=== PATIENT | female | born 2000 | race Caucasian/White ===

== ENCOUNTER 2023-10-28 12:56 | Observation (INO) | payer BC, SELFPAY ==
[2023-10-28] VITALS (24 sets, daily range): BP systolic 109–162; BP diastolic 49–97; PULSE 64–82; RESP 16–18; TEMP 36.4–36.8; O2SAT 98–100; BMI 34.4
--- NOTE | 2023-10-28 13:42 | PC.NURSE ---
Addendum entered by Katerina Ayers RN 10/28/23 14:26: Correction: this occurred at 1352 Original Note: Dr. Ferreira at beside
--- NOTE | 2023-10-28 13:46 | PC.NURSE ---
[facility] provider, Jesus Seals APRN s/w Dr. Ferreira and pt to be transferred to ER room 11.
--- NOTE | 2023-10-28 14:01 | HMH.EDGENADL ---
Discharge Plan Disposition Patient Disposition: Admitted Prescriptions Prescriptions: No Action ibuprofen 600 mg tablet 600 mg PO TIDP PRN (Reason: Pain (Scale Score 4-6)) Patient Comments: TAKE 1 TABLET BY MOUTH EVERY 6 HOURS. TAKE WITH FOOD. Referrals Follow up/Referrals: Neeru Samuels MD [Primary Care Provider] - See instructions Clinical Impressions Clinical Impression: Headache, Pre-eclampsia in period Discharge ED Provider: Shagufta Ferreira General Adult HPI <Shagufta Ferreira MD - Last Filed: 10/28/23 14:48> General Chief complaint: Recheck/Abnormal Lab/Rx Stated complaint: High BP 150/94 headache dizziness Time Seen by Provider: 10/28/23 13:57 Mode of Arrival: Ambulatory Source of Information: Patient Limitations: No Limitations Description of Symptoms (Recalled from ER Triage Doc. by RN): Pt took bp at home it was 150/94. She stated she had a ANGELES since 00:00 last night and has been rotating tylenol and ibuprofen. She states that she has seen floaters off and on. She is 1 week . She was induced for hypertension. History of Present Illness HPI narrative: Patient is a 1 week presents emergency department with mild headache and hypertension. She was diagnosed with gestational hypertension followed by [facility]. States she was not diagnosed with chronic hypertension preeclampsia or eclampsia. She was never on any antihypertensive medications. She was visiting her grandmother in town had a mild headache had some photophobia and some floaters she states but headache is mild and symptoms are mild she was to the urgent treatment clinic and they sent her to the emergency department further evaluation and management. Lower extremity edema is at its baseline no history of liver dysfunction thrombocytopenia etc. No other neurologic symptoms today. She is not breast-feeding currently but pumping and saving her milk. She delivered at 38 weeks and was induced however due to her hypertension. Related Data Home Medications Medication Instructions Recorded Confirmed ibuprofen 600 mg tablet 600 mg PO TIDP PRN Pain (Scale 10/28/23 10/28/23 Score 4-6) Allergies Allergy/AdvReac Type Severity Reaction Status Date / Time promethazine [From Phenergan] Allergy Verified 10/28/23 13:24 PFSH <Shagufta Ferreira MD - Last Filed: 10/28/23 14:48> [facility] Disclaimer: The information contained in this section may have been updated after the patient was seen, as this information can be updated by other users. Social History (Updated 10/28/23 @ 14:48 by Shagufta Ferreira MD) Smoking Status: Never smoker alcohol intake: never current occupational status: other Travel in the last 8 weeks: None <Shagufta Ferreira MD - Last Filed: 10/28/23 14:48> ROS Obtained: Yes All systems reviewed & no additional complaints except as documented Physical Exam <Shagufta Ferreira MD - Last Filed: 10/28/23 14:48> General General appearance: alert and in no apparent distress Respiratory Respiratory exam: Present normal lung sounds bilaterally and respiratory distress Cardiovascular Cardiovascular exam: Present regular rate and normal rhythm Abdominal Exam Abdominal exam: Present soft and distention Extremities Exam Extremities exam: Present other (Bilateral symmetric lower extremity edema) Neurological Exam Neurological exam: Present alert, oriented X3, CN II-XII intact and normal gait; Absent motor sensory deficit Medical Decision Making <Shagufta Ferreira MD - Last Filed: 10/28/23 14:48> [facility] Inquiry Pt receiving controlled substance: No Vital Signs: 10/28/23 13:05 10/28/23 13:59 10/28/23 14:01 Temperature 97.6 F 97.6 F Temperature Source Oral Oral Pulse Rate 72 Pulse Rate [Right Radial] 73 68 Respiratory Rate 18 18 18 Blood Pressure 143/82 H Blood Pressure [Left Arm] 162/97 H 143/82 H Blood Pressure Mean 102 Blood Pressure Mean [Left Arm] 118 102 Blood Pressure Source [Left Arm] Automatic Cuff Blood Pressure Position [Left Arm] Sitting 02 Sat by Pulse Oximetry 100 98 98 Oxygen Delivery Method Room Air Room Air 10/28/23 14:30 10/28/23 15:00 10/28/23 15:23 Temperature 98.2 F Temperature Source Pulse Rate 65 68 76 Pulse Rate [Right Radial] Respiratory Rate 18 18 16 Blood Pressure 136/74 141/73 H 141/73 H Blood Pressure [Left Arm] Blood Pressure Mean 92 Blood Pressure Mean [Left Arm] Blood Pressure Source [Left Arm] Blood Pressure Position [Left Arm] 02 Sat by Pulse Oximetry 98 Oxygen Delivery Method Room Air 10/28/23 15:43 Temperature Temperature Source Pulse Rate 76 Pulse Rate [Right Radial] Respiratory Rate 18 Blood Pressure 155/93 H Blood Pressure [Left Arm] Blood Pressure Mean 113 Blood Pressure Mean [Left Arm] Blood Pressure Source [Left Arm] Blood Pressure Position [Left Arm] 02 Sat by Pulse Oximetry 100 Oxygen Delivery Method Lab Data Lab results reviewed: Yes I reviewed the patient's lab results. Lab Results 10/28/23 14:00: WBC 10.9 H, RBC 3.21 L, Hgb 8.7 L, Hct 28.1 L, MCV 87.6, MCH 27.2, MCHC 31.1 L, RDW 15.6, Plt Count 607 H, MPV 8.0, Neut % (Auto) 73.1, Lymph % (Auto) 19.1, [place] % (Auto) 5.2, Eos % (Auto) 1.5, Baso % (Auto) 1.1, Neut # (Auto) 8.0 H, Lymph # (Auto) 2.1, [place] # (Auto) 0.6, Eos # (Auto) 0.2, Baso # (Auto) 0.1, Sodium 140, Potassium 3.9, Chloride 109 H, Carbon Dioxide 29, Anion Gap 5.9, BUN 11, Creatinine 0.80, Estimated Creat Clear 174, Estimated GFR 90, Est GFR ( Amer) 109, Glucose 86, Calcium 9.1, Total Bilirubin 0.2, AST 28, ALT 30, Alkaline Phosphatase 142 H, Total Protein 6.9, Albumin 3.7, Globulin 3.2, Albumin/Globulin Ratio 1.2 10/28/23 15:05: Urine Color Yellow, Urine Appearance Sl cloudy, Urine pH 6.0, Ur Specific [place] >= 1.030, Urine Protein 1+, Urine Glucose (UA) Negative, Urine Ketones Negative, Urine Blood 3+, Urine Nitrate Negative, Urine Bilirubin Negative, Urine Urobilinogen 0.2, Ur Leukocyte Esterase 1+ A, Urine RBC 10-20, Urine WBC 3-5, Ur Squamous Epith Cells 3-5, Urine Bacteria Trace, Urine Creatinine 107, Urine Total Protein 47.0 H 10/28/23 14:00 10/28/23 14:00 Orders (Tests/Meds): ED MEDICATIONS Generic Name Dose Route Start Last Admin Trade Name Freq PRN Reason Stop Dose Admin Sodium Chloride 10 ml 10/28/23 14:05 10/28/23 14:22 Sodium Chloride 0.9% 10ml Flush Syringe IV 11/27/23 14:04 10 ml NEEDED PRN Administration Maintain IV Site Discontinued Medications Generic Name Dose Route Start Last Admin Trade Name Tiesha PRN Reason Stop Dose Admin Acetaminophen 1,000 mg 10/28/23 13:57 10/28/23 14:22 Acetaminophen 1,000mg/100ml Vial IV 10/28/23 13:58 1,000 mg ONCE ONE Administration Lactated Ringer's 1,000 mls @ 999 mls/hr 10/28/23 14:00 10/28/23 14:22 Lactated Ringer's 1000 Ml Bag IV 10/28/23 15:00 999 mls/hr .Q1H1M DIAMANTE Administration Magnesium Sulfate 2 gm in 50 mls @ 50 mls/hr 10/28/23 13:57 10/28/23 14:21 Magnesium Sulfate 2gm/50ml Premix IV 10/28/23 14:56 50 mls/hr ONCE ONE Administration ORDERS Category Date Time Status CBC w/Auto Diff [Complete Blood Count Auto Diff] Stat Lab 10/28/23 14:00 Completed CMP [Comprehensive Metabolic Panel] Stat Lab 10/28/23 14:00 Completed Creatinine,Urine Random Stat Lab 10/28/23 15:05 Completed Total Protein,Urine Random Stat Lab 10/28/23 15:05 Completed UA [Urinalysis and Microscopic] Stat Lab 10/28/23 15:05 Completed Urine Culture Stat Micro 10/28/23 15:05 Received Medical Decision Narrative: Patient is a 23-year-old female present today with a normal neurologic exam with recent diagnosis of gestational hypertension here today with a headache some photophobia and some floaters. I suspect this is just residual gestational hypertension given that she is only 1 week and typically takes several weeks to completely resolve. Possible she had an undiagnosed chronic hypertension as well. Will however screen for worsening preeclampsia. She has no definitive signs or symptoms of severe features. Will check CBC CMP urinalysis to evaluate for significant proteinuria elevated liver enzymes thrombocytopenia etc. IV fluids will be administered as well as Tylenol and magnesium for her headache. I will reassess after this workup is complete. Assessment 2:46 PM patient's headache is 100% improved. Serial neurologic exams are normal labs so far unremarkable. Awaiting urine still at this point. Assuming there is no significant proteinuria will have the patient follow-up with her [employer]OLOG[employer] doctor as previously instructed. Of note patient has anemia but this has improved since her recent discharge from the hospital where her hemoglobin actually was around 7. Awaiting urinalysis will transition care to Dr. Juan Antonio Cortes at 3 PM. <John Cortes MD - Last Filed: 10/28/23 16:14> Vital Signs: 10/28/23 13:05 10/28/23 13:59 10/28/23 14:01 Temperature 97.6 F 97.6 F Temperature Source Oral Oral Pulse Rate 72 Pulse Rate [Right Radial] 73 68 Respiratory Rate 18 18 18 Blood Pressure 143/82 H Blood Pressure [Left Arm] 162/97 H 143/82 H Blood Pressure Mean 102 Blood Pressure Mean [Left Arm] 118 102 Blood Pressure Source [Left Arm] Automatic Cuff Blood Pressure Position [Left Arm] Sitting 02 Sat by Pulse Oximetry 100 98 98 Oxygen Delivery Method Room Air Room Air 10/28/23 14:30 10/28/23 15:00 10/28/23 15:23 Temperature 98.2 F Temperature Source Pulse Rate 65 68 76 Pulse Rate [Right Radial] Respiratory Rate 18 18 16 Blood Pressure 136/74 141/73 H 141/73 H Blood Pressure [Left Arm] Blood Pressure Mean 92 Blood Pressure Mean [Left Arm] Blood Pressure Source [Left Arm] Blood Pressure Position [Left Arm] 02 Sat by Pulse Oximetry 98 Oxygen Delivery Method Room Air 10/28/23 15:43 Temperature Temperature Source Pulse Rate 76 Pulse Rate [Right Radial] Respiratory Rate 18 Blood Pressure 155/93 H Blood Pressure [Left Arm] Blood Pressure Mean 113 Blood Pressure Mean [Left Arm] Blood Pressure Source [Left Arm] Blood Pressure Position [Left Arm] 02 Sat by Pulse Oximetry 100 Oxygen Delivery Method Lab Data Lab Results 10/28/23 14:00: WBC 10.9 H, RBC 3.21 L, Hgb 8.7 L, Hct 28.1 L, MCV 87.6, MCH 27.2, MCHC 31.1 L, RDW 15.6, Plt Count 607 H, MPV 8.0, Neut % (Auto) 73.1, Lymph % (Auto) 19.1, [place] % (Auto) 5.2, Eos % (Auto) 1.5, Baso % (Auto) 1.1, Neut # (Auto) 8.0 H, Lymph # (Auto) 2.1, [place] # (Auto) 0.6, Eos # (Auto) 0.2, Baso # (Auto) 0.1, Sodium 140, Potassium 3.9, Chloride 109 H, Carbon Dioxide 29, Anion Gap 5.9, BUN 11, Creatinine 0.80, Estimated Creat Clear 174, Estimated GFR 90, Est GFR ( Amer) 109, Glucose 86, Calcium 9.1, Total Bilirubin 0.2, AST 28, ALT 30, Alkaline Phosphatase 142 H, Total Protein 6.9, Albumin 3.7, Globulin 3.2, Albumin/Globulin Ratio 1.2 10/28/23 15:05: Urine Color Yellow, Urine Appearance Sl cloudy, Urine pH 6.0, Ur Specific [place] >= 1.030, Urine Protein 1+, Urine Glucose (UA) Negative, Urine Ketones Negative, Urine Blood 3+, Urine Nitrate Negative, Urine Bilirubin Negative, Urine Urobilinogen 0.2, Ur Leukocyte Esterase 1+ A, Urine RBC 10-20, Urine WBC 3-5, Ur Squamous Epith Cells 3-5, Urine Bacteria Trace, Urine Creatinine 107, Urine Total Protein 47.0 H Orders (Tests/Meds): ED MEDICATIONS Generic Name Dose Route Start Last Admin Trade Name Freq PRN Reason Stop Dose Admin Sodium Chloride 10 ml 10/28/23 14:05 10/28/23 14:22 Sodium Chloride 0.9% 10ml Flush Syringe IV 11/27/23 14:04 10 ml NEEDED PRN Administration Maintain IV Site Discontinued Medications Generic Name Dose Route Start Last Admin Trade Name Freq PRN Reason Stop Dose Admin Acetaminophen 1,000 mg 10/28/23 13:57 10/28/23 14:22 Acetaminophen 1,000mg/100ml Vial IV 10/28/23 13:58 1,000 mg ONCE ONE Administration Lactated Ringer's 1,000 mls @ 999 mls/hr 10/28/23 14:00 10/28/23 14:22 Lactated Ringer's 1000 Ml Bag IV 10/28/23 15:00 999 mls/hr .Q1H1M DIAMANTE Administration Magnesium Sulfate 2 gm in 50 mls @ 50 mls/hr 10/28/23 13:57 10/28/23 14:21 Magnesium Sulfate 2gm/50ml Premix IV 10/28/23 14:56 50 mls/hr ONCE ONE Administration ORDERS Category Date Time Status CBC w/Auto Diff [Complete Blood Count Auto Diff] Stat Lab 10/28/23 14:00 Completed CMP [Comprehensive Metabolic Panel] Stat Lab 10/28/23 14:00 Completed Creatinine,Urine Random Stat Lab 10/28/23 15:05 Completed Total Protein,Urine Random Stat Lab 10/28/23 15:05 Completed UA [Urinalysis and Microscopic] Stat Lab 10/28/23 15:05 Completed Urine Culture Stat Micro 10/28/23 15:05 Received Medical Decision Narrative: Patient is a 23-year-old female present today with a normal neurologic exam with recent diagnosis of gestational hypertension here today with a headache some photophobia and some floaters. I suspect this is just residual gestational hypertension given that she is only 1 week and typically takes several weeks to completely resolve. Possible she had an undiagnosed chronic hypertension as well. Will however screen for worsening preeclampsia. She has no definitive signs or symptoms of severe features. Will check CBC CMP urinalysis to evaluate for significant proteinuria elevated liver enzymes thrombocytopenia etc. IV fluids will be administered as well as Tylenol and magnesium for her headache. I will reassess after this workup is complete. Assessment 2:46 PM patient's headache is 100% improved. Serial neurologic exams are normal labs so far unremarkable. Awaiting urine still at this point. Assuming there is no significant proteinuria will have the patient follow-up with her [employer]OLOG[employer] doctor as previously instructed. Of note patient has anemia but this has improved since her recent discharge from the hospital where her hemoglobin actually was around 7. Awaiting urinalysis will transition care to Dr. Juan Antonio Cortes at 3 PM. John Cortes: Upon assumption of care patient was hemodynamically stable. Throughout her stay in the emergency department patient has had 2 episodes of photopsia lasting approximate 1 minute in duration. Upon my evaluation patient has a 4 out of 10 bifrontal headache, no acute reported extremity weakness. Patient is a G1, P1 vaginal delivery on 17 at [place]. She had gestational hypertension which was reportedly not treated with any medication. Upon arrival patient was systolic over 160. She was given 2 g of magnesium and 1 g of acetaminophen. Blood pressures since have been just above 140 systolic. Patient does have 1+ protein in her urine. This may be confounded by bleeding given that there were red cells in her urine as well. However given neurologic symptoms with hypertension preeclampsia remains on the differential. The case was discussed with obstetrics on-call Dr. Yoo. Urine protein to creatinine ratio was obtained which was 0.43. 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 Patient elected the latter. Given this patient will be admitted to obstetrics at this time for continued evaluation. Critical Care <Shagufta Ferreira MD - Last Filed: 10/28/23 14:48> Critical Care Time Critical Care Time: No
[2023-10-28] MEDS: MAGNESIUM SULFATE IN WATER 2 GM/50 ML PIGGYBACK IV (14:21)
[2023-10-28] MEDS: SODIUM CHLORIDE 0.9% 10ML FLUSH SYRINGE 10 ML IV (14:22)
[2023-10-28] MEDS: ACETAMINOPHEN 1,000MG/100ML VIAL 1000 MG IV (14:22)
[2023-10-28] MEDS: LACTATED RINGERS 1000ML 1,000 ML 999 ML IV (14:22)
--- NOTE | 2023-10-28 14:24 | PC.NURSE ---
manual breast pump obtained from OB department d/t pt leaking through her bra and breast pad. Pump set up for pt and charge sticker item given back to OB to bill from their department.
[2023-10-28 14:27] LABS: Chloride 109 mmol/L (98-107); Potassium 3.9 mmoL/L (3.5-5.1); Sodium 140 mmol/L (136-145)
[2023-10-28 14:29] LABS: Blood Urea Nitrogen 11 mg/dl (7-17); Creatinine Clearance Estimated 174 mL/min (50-200); Estimated Glomerular Filt Rate 90 ml/min (>60); GFR (African American) 109 ML/MIN (>60)
[2023-10-28 14:30] LABS: Alanine Aminotransferase 30 U/L (12-78); Albumin Level 3.7 g/dl (3.5-5.0); Albumin/Globulin Ratio 1.2 (1.1-1.8); Alkaline Phosphatase 142 U/L (38-126); Anion Gap 5.9 mEq/L (5-15); Aspartate Amino Transferase 28 U/L (14-36); Bilirubin,Total 0.2 mg/dl (0.2-1.3); Carbon Dioxide 29 mmol/L (22.0-30.0); Globulin 3.2 g/dL (1.3-3.2); Total Protein,Serum 6.9 g/dl (6.3-8.2)
[2023-10-28 14:31] LABS: Calcium 9.1 mg/dl (8.4-10.2); Glucose 86 mg/dl (74-100)
[2023-10-28 14:33] LABS: Basophils # 0.1 K/mm3 (0-0.2); Basophils % 1.1 % (0.1-2.0); Eosinophils # 0.2 K/mm3 (0.0-0.4); Eosinophils % 1.5 % (0.1-12.0); Hematocrit 28.1 % (37.0-47.0); Hemoglobin 8.7 g/dL (12.2-16.2); Lymphocytes # 2.1 K/mm3 (0.7-4.5); Lymphocytes % 19.1 % (10-50); Mean Corpuscular HGB Conc 31.1 g/dL (31.8-35.4); Mean Corpuscular Hemoglobin 27.2 pg (27.0-31.2); Mean Corpuscular Volume 87.6 fl (81-99); Monocytes # 0.6 K/mm3 (0.1-1.0); Monocytes % 5.2 % (1.7-9.3); Neutrophils % 73.1 % (37.0-80.0); Platelet Count 607 K/mm3 (142-424); Red Blood Count 3.21 M/mm3 (4.20-5.40); Red Cell Distribution Width 15.6 % (11.5-17.5); White Blood Count 10.9 K/mm3 (4.8-10.8)
--- NOTE | 2023-10-28 14:43 | PC.NURSE ---
Rounded on pt, she is feeling better and headache is mostly all gone . BP is 136/74 at this time. Pt shows us on her [facility] pt portal that at the time of d/c. Her Hgb 7.[address] Ferreira notified of this.
--- NOTE | 2023-10-28 15:00 | PC.NURSE ---
Dr. Ferreira rounded on pt.
--- NOTE | 2023-10-28 15:08 | PC.NURSE ---
Urine collected and submitted to lab
[2023-10-28 15:13] LABS: Microscopic, Urine URINE MICROSCOPIC (MICROSCOPIC)
[2023-10-28 15:15] LABS: Appearance,Urine SL CLOUDY (Clear); Bilirubin,Urine Negative (Negative); Blood, Urine 3+ (Negative); Color,Urine YELLOW (Yellow); Glucose,Urine (UA) Negative (Negative); Ketones,Urine Negative (Negative); Leukocyte Esterase,Urine 1+ (Negative); Nitrate,Urine Negative (Negative); Protein,Urine 1+ (Negative); Specific Gravity, Urine >= 1.030 (1.005-1.030); Urobilinogen,Urine 0.2 EU/dl (0.2)
[2023-10-28 15:27] LABS: Bacteria,Urine Trace /lpf
--- NOTE | 2023-10-28 15:32 | PC.NURSE ---
Dr. Cortes at BS to update pt on current POC
--- NOTE | 2023-10-28 15:35 | PC.NURSE ---
Dr. Fredo vargas
--- NOTE | 2023-10-28 15:38 | PC.NURSE ---
Dr. Cortes s/w Dr. Yoo
--- NOTE | 2023-10-28 15:49 | PC.NURSE ---
Pt provided with warm blanket
[2023-10-28 15:52] LABS: Creatinine,Urine Random 107 mg/dL (Not Estab.)
--- NOTE | 2023-10-28 16:00 | PC.NURSE ---
DR ESCOTO SPEAKING WITH DR GAN
--- NOTE | 2023-10-28 16:08 | PC.NURSE ---
Dr. Cortes at BS to update pt on results and POC
--- NOTE | 2023-10-28 16:12 | PC.NURSE ---
notified diet supervisor for bed request. ADX to OB- Dr. Mili Yoo for 1 wk eclampsia
--- NOTE | 2023-10-28 16:18 | PC.NURSE ---
Called OB and they received orders directly from Dr. Yoo.
--- NOTE | 2023-10-28 16:23 | PC.NURSE ---
report called to OB
[2023-10-28 17:20] LABS: Magnesium 1.9 mg/dl (1.6-2.3)
--- NOTE | 2023-10-28 17:48 | P.HP_ITS ---
History of Present Illness *Admission Date: 10/28/23 *Reason for visit:: Severe preeclampsia *History of present illness: Deborah Schaefer is a 23-year-old approximately 1 week from a at 38 completed weeks gestation at [place]. She was delivered early secondary to diagnosis of gestational hypertension, per patient. Patient was here visiting her mom and grandmother when she noticed that she felt very very hot and that she was running a fever. They presented to the ED where her blood pressure was 162/97. OB was called in secondary to her severe range blood pressure and headache that has not been relieved with a gram of Tylenol decision was made to admit her and treat her for severe preeclampsia. [facility] Disclaimer: The information contained in this section may have been updated after the patient was seen, as this information can be updated by other users. Social History (Updated 10/28/23 @ 14:48 by Shagufta Ferreira MD) Smoking Status: Never smoker alcohol intake: never current occupational status: other Travel in the last 8 weeks: None Review of Systems Review of Systems Review of systems (narrative): Review of Systems Constitutional: Denies fever, chills, and sweats Eyes: Denies vision change/ pain Respiratory: Denies cough and shortness of breath Cardiovascular: Denies chest pain and lightheadedness Gastrointestinal: Denies abdominal pain. Denies nausea, vomiting. Genitourinary: Denies dysuria and incontinence Musculoskeletal: Denies shoulder pain and back pain Neurological: Denies change in speech. Endorses severe headache Meds Home Medications and Allergies Home Medications Medication Instructions Recorded Confirmed Type ibuprofen 600 mg tablet 600 mg PO Q6HP PRN Pain (Scale 10/28/23 10/29/23 History Score 4-6) labetalol 100 mg tablet 100 mg PO BID #60 tabs 10/29/23 Rx ondansetron 4 mg disintegrating 4 mg PO Q8H #14 tabs 10/29/23 Rx tablet sertraline 25 mg tablet 25 mg PO DAILY #30 tabs 10/29/23 Rx New Prescriptions to Start Prescriptions: labetalol Mili Yoo ondansetron Mili Yoo sertraline Mili Yoo Allergies Allergy/AdvReac Type Severity Reaction Status Date / Time promethazine [From Phenergan] Allergy Verified 10/28/23 21:50 Exam Data for Last 24 hours Vital signs and Labs for Last 24 Hours: Temp Pulse Resp BP Pulse Ox O2 Del Method 98.2 F 76 18 155/93 H 100 Room Air 10/28/23 15:23 10/28/23 15:43 10/28/23 15:43 10/28/23 15:43 10/28/23 15:43 10/28/23 15:23 Laboratory Results - last 24 hr 10/28/23 14:00: WBC 10.9 H, RBC 3.21 L, Hgb 8.7 L, Hct 28.1 L, MCV 87.6, MCH 27.2, MCHC 31.1 L, RDW 15.6, Plt Count 607 H, MPV 8.0, Neut % (Auto) 73.1, Lymph % (Auto) 19.1, [place] % (Auto) 5.2, Eos % (Auto) 1.5, Baso % (Auto) 1.1, Neut # (Auto) 8.0 H, Lymph # (Auto) 2.1, [place] # (Auto) 0.6, Eos # (Auto) 0.2, Baso # (Auto) 0.1, Sodium 140, Potassium 3.9, Chloride 109 H, Carbon Dioxide 29, Anion Gap 5.9, BUN 11, Creatinine 0.80, Estimated Creat Clear 174, Estimated GFR 90, Est GFR ( Amer) 109, Glucose 86, Calcium 9.1, Magnesium 1.9, Total Bilirubin 0.2, AST 28, ALT 30, Alkaline Phosphatase 142 H, Total Protein 6.9, Albumin 3.7, Globulin 3.2, Albumin/Globulin Ratio 1.2 10/28/23 15:05: Urine Color Yellow, Urine Appearance Sl cloudy, Urine pH 6.0, Ur Specific [place] >= 1.030, Urine Protein 1+, Urine Glucose (UA) Negative, Urine Ketones Negative, Urine Blood 3+, Urine Nitrate Negative, Urine Bilirubin Negative, Urine Urobilinogen 0.2, Ur Leukocyte Esterase 1+ A, Urine RBC 10-20, Urine WBC 3-5, Ur Squamous Epith Cells 3-5, Urine Bacteria Trace, Urine Creatinine 107, Urine Total Protein 47.0 H I & O for Last 24 hours: Intake & Output 10/25/23 10/26/23 10/27/23 10/28/23 23:59 23:59 23:59 23:59 Intake Total 1150 / 1150 Balance 1150 / 1150 Weight 220 lb Narrative: General: patient is alert oriented in no acute distress and responds appropriately to questions. HEENT: NCAT, EOMI, moist mucous membranes, neck supple with full ROM Cardiovascular: RRR +S1/S2, no murmurs or rubs Pulmonary: Clear to auscultation bilaterally, nonlabored breathing, symmetric chest rise Abdominal: Soft, nontender, no guarding, or rebound noted. Extremities: +2 pitting edema to the knees bilaterally, no tenderness or cyanosis noted. Plus 2 out of 4 reflexes bilaterally Skin: Normal turgor, intact, warm. Negative for erythema, pallor, petechia, or lesions Neurologic: Negative for sensory or motor deficit Psychiatric: Normal affect, normal thought process, good judgment and insight, no depression or anxious mood appreciated. *Routine HEENT Exam Head: Present normocephalic and atraumatic Eye: Present EOMI, PERRL and normal accommodation; Absent conjunctival icterus, scleral injection, nystagmus or exophthalmos ENT: Present mucous membranes moist *Routine Respiratory Exam Respiratory: Present CTA bilaterally, normal respiratory effort, able to speak in complete sentences and symmetric chest movement; Absent accessory muscle use, decreased breath sounds, rales, respiratory distress, wheezes, distant breath sounds or diminished air movement *Routine Cardiovascular Exam Cardiovascular: Present RRR, Normal S1 and Normal S2; Absent murmur or gallop *Routine Abdominal Exam Abdominal: Present soft and normoactive bowel sounds; Absent tenderness, distended, rebound or guarding *Routine Rectal Exam Rectal:: deferred *Routine Genitalia Exam Genitalia:: normal female Assessment and Plan *Assessment and plan (1) Pre-eclampsia in period: Status: Acute Category: Medical Code(s): O14.95 - Unspecified pre-eclampsia, complicating the puerperium (2) Headache: Status: Acute Qualifiers: Headache chronicity pattern: acute headache Intractability: intractable Category: Medical Code(s): R51.9 - Headache, unspecified (3) Severe pre-eclampsia: Status: Acute Qualifiers: Trimester: unspecified trimester Qualified Code(s): O14.10 - Severe pre-eclampsia, unspecified trimester Category: Medical Code(s): O14.10 - Severe pre-eclampsia, unspecified trimester (4) Breast feeding status of mother: Status: Acute Category: Medical Code(s): Z39.1 - Encounter for care and examination of lactating mother (5) (normal spontaneous vaginal delivery): Status: Acute Category: Medical Code(s): O80 - Encounter for full-term uncomplicated delivery (6) Anemia: Status: Acute Qualifiers: Anemia type: other cause Other causes of anemia: acute posthemorrhagic Qualified Code(s): D62 - Acute posthemorrhagic anemia Category: Medical Code(s): D64.9 - Anemia, unspecified Plan #Severe preeclampsia # -HD#1 -Doing well. VSS. Serial lochia and fundal checks. -Admit to labor and delivery with a 4 g loading dose of magnesium and 2 g an hour of a maintenance magnesium dose -Please check a magnesium level 4 hours after loading dose -Strict I's and O monitoring -Regular diet -SCDs on at all times in bed -Benadryl IV ordered as needed insomnia -Zofran ordered as needed nausea -Status post 1 g IV Tylenol for her headache. 500 mg p.o. every 4 hours of Tylenol -Serial BP and serial PIH labs #Anemia -Hemoglobin is 8.7 -MCV is 87.6 -Supplement with p.o. iron -Delivery at an outside hospital suspect physiologic anemia of /possible hemorrhage #Breast-feeding status of mother -Greater than 1 hour was spent counseling the patient on breast-feeding, latch, pumping. The has previously had a surgical tongue-tie procedure but was not doing the proper care after the surgery. Extensive counseling provided to patient and all family members in the room. The patient was fitted for the proper nipple shield. The patient was fitted for the proper breast pump flanges. All questions and concerns were addressed to the patient's satisfaction. The infant was able to successfully latch and into the breast.
[2023-10-28] MEDS: MAGNESIUM SULFATE IN WATER 4 GM/50 ML PIGGYBACK IV (18:02)
[2023-10-28] MEDS: LACTATED RINGERS 1000ML 1,000 ML 75 ML IV (18:07)
--- NOTE | 2023-10-28 18:10 | PC.NURSE ---
Bilateral Brachial and patellar Reflexes brisk plus 2, clonus absent
[2023-10-28] MEDS: MAGNESIUM SULFATE IN WATER 20 GM/500 ML IV.SOLN IV (18:23)
--- NOTE | 2023-10-28 20:00 | PC.NURSE ---
DTR'S 2+ PATELLA,NO CLONUS
[2023-10-28] MEDS: ACETAMINOPHEN 500MG TAB 500 MG PO (20:13)
[2023-10-28] MEDS: LABETALOL 100MG TABLET 100 MG PO (21:00)
--- NOTE | 2023-10-28 21:00 | PC.NURSE ---
DTR'S 2+,NO CLONUS,PT REPORTS HER H/A NOW IS ABOUT A 1 ON PAIN SCALE
[2023-10-28 21:44] LABS: Magnesium 1.9 mg/dl (1.6-2.3)
--- NOTE | 2023-10-28 22:00 | PC.NURSE ---
PT LAYING ON HER RIGHT SIDE ASLEEP,RESP.EVEN AND UNLABORED.EASILY AROUSED TO CHECK HER REFLEXES.DTR'S 2+,NO CLONUS,NO COMPLAINTS OF H/A OR VISIUAL DISTURBANCES
--- NOTE | 2023-10-28 23:00 | PC.NURSE ---
PT JUST RETURNED FROM BATHROOM.SIGNIFICANT OTHER SAID SHE WAS A LITTLE SHAKY AND ALMOST FELL,TOLD HIM THE MAG.MAKES YOU WEAK.DTR'S 2 +,NO CLONUS,NO HEADACHE,NO VISIUAL DISTURBANCES.
--- NOTE | 2023-10-28 23:30 | PC.NURSE ---
LAB HERE TO DRAW A MAG.LEVEL
[2023-10-28 23:56] LABS: Magnesium 5.3 mg/dl (1.6-2.3)
[2023-10-29] VITALS (11 sets, daily range): BP systolic 109–141; BP diastolic 54–77; PULSE 74–85; RESP 16–18; TEMP 36.4–36.7; O2SAT 96–100
--- NOTE | 2023-10-29 00:04 | PC.NURSE ---
DTR'S 2+,NO CLONUS,REPORTS A SLIGHT H/A MAYBE A 1 ON SCALE OF 0-10 FROM JUST COMING BACK FROM BATHROOM,DENIES ANY VISIUAL DISTURBANCES,.LUNGS CLEAR.WATER PITCHER REFILLED FOR PT AT THIS TIME
--- NOTE | 2023-10-29 00:15 | PC.NURSE ---
PT GETTTING READY TO BREASTFEED
--- NOTE | 2023-10-29 01:00 | PC.NURSE ---
PT LAYING ON HER RIGHT SIDE,SHE HAD JUST WENT TO BATHROOM.DTR'S 1+,NO CLONUS,DENIES ANY ANGELES OR VISIUAL DIDTURBANCES.2+ PITTING EDEMA NOTED TO BILATERAL LOWER EXTRIMITIES
--- NOTE | 2023-10-29 02:10 | PC.NURSE ---
PT WAS SLEEPING,EASILY AROUSED.DTR'S 2+,NO CLONUS,DENIES ANY ANGELES OR VISIUAL DISTURBANCES.ASSISTED HER TO BATHROOM.STANDBY ASSIST R/T WEAKNESS IN LEGS.PT VOIDED 300ML CLEAR YELLOW URINE.RETURNED TO BED.WARM BLANKET PROVIDED.BED IN LOW POSITION,CALL FUENTES IN REACH
[2023-10-29] MEDS: ACETAMINOPHEN 500MG TAB 500 MG PO (04:01)
[2023-10-29] MEDS: MAGNESIUM SULFATE IN WATER 20 GM/500 ML IV.SOLN IV (04:07)
--- NOTE | 2023-10-29 04:10 | PC.NURSE ---
Addendum entered by Donna Donald RN 10/29/23 06:30: 2+ PITTING EDEMA IN BLE Original Note: UPON ENTERING ROOM SIGNIFICANT OTHER HAD TAKEN PT TO BATHROOM,SHE VOIDED 500ML OF CLEAR YELLOW URINE.LUNGS CLEARS,RESP.EVEN AND UNLABORED.DTR'S 2 +,NO CLONUS.PT C/O HEADACHE AFTER GOING TO BATHROOM.RATING IT A 5 ON PAIN SCALE OF 0-10.TYLENOL 500MG PO GIVEN.PT DENIES ANY BLURRED VISION OR SPOTS.IV SITE STILL INFUSING WITHOUT DIFF.BED IN LOW POSITION ,CALL LIGHT IN REACH
--- NOTE | 2023-10-29 05:00 | PC.NURSE ---
PT HAD JUST RETURNED FROM BATHROOM,DTR'S 2+,NO CLONUS,DENIES HEADACHE,BLURRED VISION AND SPOTS,NO C/O OR NEEDS
--- NOTE | 2023-10-29 06:21 | PC.NURSE ---
PT SLEEPING SOUNDLY,RESP.EVEN AND UNLABORED.PT AROUSED SO REFLEXES COULD BE OBTAINED.2+,NO CLONUS,NO ANGELES OR VISIUAL DISTURBANCES
[2023-10-29] MEDS: LACTATED RINGERS 1000ML 1,000 ML 75 ML IV (06:47)
--- NOTE | 2023-10-29 07:00 | PC.NURSE ---
2+ DTR'S,NO CLONUS.ZOFRAN 4MG IVP GIVEN FOR NAUSEA
[2023-10-29] MEDS: ONDANSETRON 4MG/2ML VIAL 4 MG IV (07:01)
[2023-10-29] MEDS: LABETALOL 100MG TABLET 100 MG PO (08:39)
--- NOTE | 2023-10-29 14:00 | PC.NURSE ---
Mag sulfate D/C'd at this time
--- NOTE | 2023-10-29 15:00 | PC.NURSE ---
Dr. Yoo in the room rounding on pt. MD aware of pts PP depression screening score of 15.
--- NOTE | 2023-10-29 16:04 | EXP.DC.SUM ---
General Admission date:: 10/28/23 Discharge date: 10/29/23 HPI HPI HPI: Deborah Schaefer is a 23-year-old approximately 1 week from a at 38 completed weeks gestation at [place]. She was delivered early secondary to diagnosis of gestational hypertension, per patient. Patient was here visiting her mom and grandmother when she noticed that she felt very very hot and that she was running a fever. They presented to the ED where her blood pressure was 162/97. OB was called in secondary to her severe range blood pressure and headache that has not been relieved with a gram of Tylenol decision was made to admit her and treat her for severe preeclampsia. Hospital Course Hospital Course Hospital Course: Deborah Schaefer is a 23-year-old approximately 1 week from a at 38 completed weeks gestation at [place]. She was delivered early secondary to diagnosis of gestational hypertension, per patient. Patient was here visiting her mom and grandmother when she noticed that she felt very very hot and that she was running a fever. They presented to the ED where her blood pressure was 162/97. OB was called in secondary to her severe range blood pressure and headache that has not been relieved with a gram of Tylenol decision was made to admit her and treat her for severe preeclampsia. Patient was admitted and administered magnesium for seizure prophylaxis. She was started on labetalol 100 mg twice daily. She was treated with Zofran for nausea. She was treated with Tylenol for a persistent headache. Patient was given extensive counseling on breast-feeding and caring for an infant. Her labs were monitored closely and were stable on discharge. Her blood pressure was stable on discharge. Patient screened high for depression and states that she has a history of chronic depression that is never been treated. She was started on a low-dose of Zoloft and counseled extensively on this. She will follow-up with me in 1 week . Exam Data for Last 24 hours Vital signs and Labs for Last 24 Hours: Temp Pulse Resp BP Pulse Ox O2 Del Method 97.9 F 75 18 126/67 100 Room Air 10/29/23 12:00 10/29/23 12:00 10/29/23 12:00 10/29/23 12:00 10/29/23 12:00 10/29/23 14:00 Laboratory Results - last 24 hr 10/28/23 14:00: Magnesium 1.9 10/28/23 14:00: Magnesium 1.9 10/28/23 23:38: Magnesium 5.3 H D I & O for Last 24 hours: Intake & Output 10/26/23 10/27/23 10/28/23 10/29/23 23:59 23:59 23:59 23:59 Intake Total 1150 / 1150 2158 / 2158 Output Total 750 / 750 4750 / 4750 Balance 400 / 400 -2592 / -2592 Weight 220 lb Narrative: General: patient is alert oriented in no acute distress and responds appropriately to questions. HEENT: NCAT, EOMI, moist mucous membranes, neck supple with full ROM Cardiovascular: RRR +S1/S2, no murmurs or rubs Pulmonary: Clear to auscultation bilaterally, nonlabored breathing, symmetric chest rise Abdominal: Soft, nontender, no guarding, or rebound noted. Extremities: +2 pitting edema to the knees bilaterally, no tenderness or cyanosis noted. Plus 2 out of 4 reflexes bilaterally Skin: Normal turgor, intact, warm. Negative for erythema, pallor, petechia, or lesions Neurologic: Negative for sensory or motor deficit Psychiatric: Normal affect, normal thought process, good judgment and insight, no depression or anxious mood appreciated. Constitutional Constitutional: no acute distress *Routine HEENT Exam Head: Present normocephalic Eye: Present EOMI and PERRL ENT: Present mucous membranes moist *Routine Neck Exam Neck: Present supple; Absent lymphadenopathy *Routine Respiratory Exam Respiratory: Present CTA bilaterally *Routine Cardiovascular Exam Cardiovascular: Present RRR *Routine Abdominal Exam Abdominal: Present soft and normoactive bowel sounds; Absent tenderness *Routine Extremities Exam Extremities: Absent cyanosis, clubbing or edema *Routine Skin Exam Skin: Present warm; Absent rash *Routine Neurological Exam Neurological: Present alert and oriented X3 Results Data Completed and Pending Labs on day of discharge: Labs from last 24 hours 10/28/23 10/28/23 10/28/23 23:38 14:00 14:00 Magnesium 5.3 H D 1.9 1.9 DS: Diagnosis Discharge Diagnosis (1) Pre-eclampsia in period: Status: Acute Code(s): O14.95 - Unspecified pre-eclampsia, complicating the puerperium (2) Headache: Status: Acute Code(s): R51.9 - Headache, unspecified Qualifiers: Headache chronicity pattern: acute headache Intractability: intractable (3) Severe pre-eclampsia: Status: Acute Code(s): O14.10 - Severe pre-eclampsia, unspecified trimester Qualifiers: Trimester: unspecified trimester Qualified Code(s): O14.10 - Severe pre-eclampsia, unspecified trimester (4) Breast feeding status of mother: Status: Acute Code(s): Z39.1 - Encounter for care and examination of lactating mother (5) (normal spontaneous vaginal delivery): Status: Acute Code(s): O80 - Encounter for full-term uncomplicated delivery (6) Anemia: Status: Acute Code(s): D64.9 - Anemia, unspecified Qualifiers: Anemia type: other cause Other causes of anemia: acute posthemorrhagic Qualified Code(s): D62 - Acute posthemorrhagic anemia Problem details: #Severe preeclampsia # -HD#2 -Doing well. VSS. Serial lochia and fundal checks. -Status post magnesium -Tolerating p.o. without nausea or vomiting -DC with Zofran RX as needed nausea #Anemia -Hemoglobin is 8.7 -MCV is 87.6 -Supplement with p.o. iron -Delivery at an outside hospital suspect physiologic anemia of /possible hemorrhage #Breast-feeding status of mother -Greater than 1 hour was spent counseling the patient on breast-feeding, latch, pumping. The infant has previously had a surgical tongue-tie procedure but was not doing the proper care after the surgery. Extensive counseling provided to patient and all family members in the room. The patient was fitted for the proper nipple shield. The patient was fitted for the proper breast pump flanges. All questions and concerns were addressed to the patient's satisfaction. The infant was able to successfully latch and into the breast. # depression -Likely a component of chronic depression. Patient scored high with ED PS. Will repeat this at her visit. Started on Zoloft 25 mg once daily. Counseled on somnolence and decreased libido Discharge home today with short interval follow-up Meds Home Medications and Allergies Home Medications Medication Instructions Recorded Confirmed Type ibuprofen 600 mg tablet 600 mg PO Q6HP PRN Pain (Scale 10/28/23 10/29/23 History Score 4-6) labetalol 100 mg tablet 100 mg PO BID #60 tabs 10/29/23 Rx ondansetron 4 mg disintegrating 4 mg PO Q8H #14 tabs 10/29/23 Rx tablet sertraline 25 mg tablet 25 mg PO DAILY #30 tabs 10/29/23 Rx New Prescriptions to Start Prescriptions: labetalol Mili Yoo ondansetron Mili Yoo sertraline Mili Yoo Allergies Allergy/AdvReac Type Severity Reaction Status Date / Time promethazine [From Phenergan] Allergy Verified 10/28/23 21:50 Discharge Plan Disposition Patient Disposition: Home, Self-Care Follow up Plan Follow up with: Mili Yoo DO [Staff Physician] - 1 week Prescriptions/Medication Reconciliation: New labetalol 100 mg Tablet 100 mg PO BID Qty: 60 1RF sertraline 25 mg tablet 25 mg PO DAILY Qty: 30 3RF ondansetron 4 mg tablet,disintegrating 4 mg PO Q8H Qty: 14 0RF Continued ibuprofen 600 mg tablet 600 mg PO Q6HP PRN (Reason: Pain (Scale Score 4-6)) Patient Comments: TAKE 1 TABLET BY MOUTH EVERY 6 HOURS. TAKE WITH FOOD. Problem Reconciliation Problems Reviewed?: Yes Patient Discharge Instructions ACTIVITY: Continue current activity DIET: regular diet Additional Instructions: Congratulations on the delivery of your sweet baby boy. It is my privilege to be part of your [facility] team and help care for you during your period. You were admitted to labor and delivery secondary to severe preeclampsia. You were administered magnesium sulfate for seizure prophylaxis. You were started on a low-dose of labetalol, 100 mg twice daily, for blood pressure control. During your stay we discussed baby blues versus depression and you expressed concern of exacerbation of your chronic depression/anxiety. You were started on the lowest dose of Zoloft. Prior to discharge you were scheduled to follow-up and see me in 1 week to discuss the new medications that you were started on and ensure that your mood was stable and your blood pressure was well-controlled. Below are a list of things to call my office for or return to the emergency department for. Discharge: 1. Take 800 mg Ibuprofen every 8 hours as needed for pain. You can also take 500-1000 mg of Tylenol in between doses, every 6-8 hours. 2. Iron supplements can make you constipated. Colace can be taken 1-2 times per day as you need. You can take iron tablets every other day if constipation is too bad. 3. Nothing in the vagina for 6 weeks - no sex, douching, tampons. No tub baths 4. Do not lift greater than 15 pounds for 6 weeks, this is the equivalent of 2 gallons of milk. 5. Reasons to return to L&D or call On-Call doctor - fever (greater than 100.4) - heavy vaginal bleeding (soaking through 1 pad in less than 2 hours or passing clots that are egg sized) - vaginal discharge (malodorous and/or purulent) - severe headaches, leg tenderness/edema, or any other symptoms that warrant immediate medical attention. 6. depression/blues - Normal to feel anxious/overwhelmed for first 2 weeks - Talk to your doctor if: anxiety lasts over 2 weeks, trouble bonding with baby, withdrawing from other family members, thoughts of harming yourself or others Blood pressure and preeclampsia instructions 1. Please take your blood pressure twice daily. 2. Please call if greater than 2 values are higher than: 150 systolic (the top number) or 100 diastolic (the bottom number). 3. Please go to the emergency room or labor and delivery triage if any value is higher than: 160 systolic (the top number) or 110 diastolic (the bottom number). 4. Please call if unrelenting headache (does not go away with rest or Tylenol or ibuprofen), changes in vision (spots, floaters, flashes of light), chest pain, shortness of breath, or right upper quadrant (liver) abdominal pain. Mili Yoo DO [facility] [phone] *Nothing in the Vagina for 6 weeks* *No strenuous activity* *No heavy lifting* *No tub baths until okay's by * Patient Instructions: DI for Pre-eclampsia Providers Primary Care Provider: Neeru Samuels Admit Provider: Mili Yoo Attending Provider: Mili Yoo
--- NOTE | 2023-10-29 16:10 | PC.NURSE ---
IV D/C'd and D/C instructions provided
== END 2023-10-29 17:00 | disposition home or self-care (01) ==
LOC: UTC 13:14 → ER 13:45 → OB 16:17
PROVIDERS: Emergency Medicine; Admitting Provider Obstetrics & Gynecology; Emergency Provider Student in an Organized Health Care Education/Training Program; PCP Internal Medicine; Visit Provider Obstetrics & Gynecology
DX: O14.15 Severe pre-eclampsia, complicating the puerperium (principal); O99.345 Other mental disorders complicating the puerperium; F53.0 Postpartum depression; O90.81 Anemia of the puerperium
CPT/HCPCS: 36415; 80053; 81001; 82570; 83735; 84156; 85025; 87086; G0378; J0131; J2405; J3475

== ENCOUNTER → 2023-11-01 14:56 | Outpatient (CLI) | payer BC, SELFPAY | LOC: OBOUT 14:57 | PROVIDERS: Visit Provider Obstetrics & Gynecology | DX: Z39.1 Encounter for care and examination of lactating mother (principal) ==

== ENCOUNTER 2025-02-12 14:41 | Outpatient (CLI) | payer BC, SELFPAY ==
--- OUTSIDE RECORDS SUMMARY | 2025-02-12 14:45 | XMS_ITS | Clinical Summary ---
Author Organization [facility] Address [address] [place] [address] Phone Care Team Providers Care Open Source Developer Name Role Phone Neeru Samuels MD Primary Care Provider [phone]- [phone] Allergies Active Allergy Reactions Criticality Noted Date Comments Adhesive Rash Low 10/20/2023 Promethazine Other (See Comments) Medium Childhood reaction Medications vit no.[id number] c 27 mg iron- 800 mcg Oral Tablet Take 1 Tablet by mouth daily. Active ibuprofen (ADVIL;MOTRIN) 600 mg Oral Tablet Take 1 Tablet by mouth every 6 hours. Take with food. 60 Tablet 10/22/2023 Active sertraline (ZOLOFT) 25 mg Oral Tablet Take 25 mg by mouth daily. 10/29/2023 Active Active Problems Problem Noted Date Diagnosed Date (spontaneous vaginal delivery) 10/21/2023 Elevated blood pressure affe cting in third trimester, antepartum 10/20/2023 Vaginal discharge during in third trim meaghan 10/11/2023 Rh negative, antepartum 05/18/2023 Resolved Problems Problem Noted Date Diagnosed Date Resolved Date Encounter for induction of labor 10/20/2023 04/05/2024 Encounter for supervision of normal , antepartum 04/19/2023 04/05/2024 Overview (10/05/2023): G1. KRAAN by 8 wk US. PNL normal Genetics undecided Anatomy wnl GCT 97 Gbs neg Immunizations Immunization Administration Dates Next Due DTaP 06/13/2005, 2,2001,02/2002 DTaP/HiB 12/24/2002 HPV 9 Valent 11/07/2017 HPV Quadrivalent 08/27/2012 Hep B/HiB 2001,2001 Hepatitis A, Ped/Adol, 2 Dose 08/27/2012, 006 Hepatitis B, Adult 07/29/2021,03/15/2021 Hepatitis B, Ped/Adol 04/17/2021,2001 HiB (PRP-T) 2001 IPV 06/13/2005, 2,2001,02/2002 Influenza Vaccine Quadrivalent PF 08/26/2021,04/2021 Influenza, Live, Intranasal 08/27/2012 LAST MANUFACTURED 2011-Pneum ococcal Conjugate 7 Valent 09/20/2002,2001,2001,02/2002 MMR 06/13/2005,09/20/2002 Meningococcal B,OMV 03/15/2021,03/19/2018,2017 Meningococcal Oligosaccharide Conjugate 11/08/19 18,08/27/2012 PPD Test 09/21/2018 Rho (D) Immune Globulin 10/22/2023,08/11/2023 Td (adult), preservative free 03/19/2018 Tdap 08/08/2023,08/27/2012 Varicella 08/27/2012,06/14/2002 Surgical History Surgery Date Site/Laterality Comments TONSILLECTOMY 08/07/2006 - 08/06/2007 Medical History Medical History Date Comments Post depression Hypertension Family History Medical History Relation Name Comments Anemia Maternal Grandfather Heart Attack Maternal Grandfather had PM Diabetes Mother Hypertension Mother pre-eclampsia Mother Breast Cancer Paternal Aunt Diabetes Paternal Grandfather Skin Cancer Paternal Grandmother Relation Name Status Comments Father Alive Maternal Grandfather Alive Mother Alive Paternal Aunt Alive Paternal Grandfather Alive Paternal Grandmother Social History Tobacco Use Types Packs/Day Years Used Date Smoking Tobacco: Never Passive Smoke Exposure: Never Smokeless Tobacco: Never Tobacco Cessation:Counseling Given: Not Answered Alcohol Use Standard Drinks/Week Comments Not Currently 0 (1 standard drink = 0.6 oz pur e alcohol) social PHQ-2 Answer Date Recorded PHQ-2 Total Score 0 10/20/2023 Sexually Active Control Partners Comments Yes Male Comments No Sex and Gender Information Value Date Recorded Sex Assigned at Not on file Legal Sex Female 3:17 PM EST Gender Identity Not on file Sexual Orientation Not on file Obstetrics History Para Term AB IAB SAB Ectopic Multiple Livin g Live Births 1 1 1 0 1 1 Date Outcome GA Total Labor Labor/2nd/3rd Weight Sex Type Anes PTL Kisha A1 A5 Name Clin 2023 Term 38w 5d 0h 06m 0h 06m 7 lb 5.1 oz (3.32 kg) M Vag-S pont Epidur al N Livin g 8 9 Serene Noel DO Complications:Gestational hy pertension, third trimester Delivery Location:[facility] ([facility]) Last Filed Vital Signs Vital Sign Reading Time Taken Comments Blood Pressure 124/72 07/11/2024 1:32 PM EST Pulse 82 07/11/2024 1:32 PM EST Temperature 36.6 C (97.8 F) 04/05/2024 2:08 PM EDT Respiratory Rate 14 03/10/2024 6:29 AM EDT Oxygen Saturation 97% 07/11/2024 1:32 PM EST Inhaled Oxygen Concentration - - Weight 106.1 kg (234 lb) 07/11/2024 1:32 PM EST Height 170.2 cm (5' 7 ) 07/11/2024 1:32 PM EST Body Mass Index 36.65 07/11/2024 1:32 PM EST Plan of Treatment Upcoming Encounters Date Type Department Care Team (Late st Contact Info) Description 07/15/2025 10:30 AM EST Office Visit [facility] [address] [place] [address] Neeru Samuels MD [address] [place] [address] Health Maintenance Due Date Last Done Comments COVID-19 Vaccine ( season) 2024 05/15/2021, 04/17/2021 Chlamydia Screening 04/19/2024 04/19/2023 Influenza Vaccine (#1) 2025 2, 05/15/2021, 08/27/2012 Annual Wellness Exam 07/11/2025 07/11/2024 Cervical Cancer Screening 04/19/2026 Pap Smear 04/19/2026 04/19/2023 DTaP/TDaP/Td (9 - Td or Tdap) 08/08/2033 08/08/2023, 03/19/2018, 08/27/2012, Additional history exists Pneumococcal Vaccine 0-49 Aged Out 2002, 2001, 2001, Additional history exists No longer eligible based on patient's age to complete this topic HPV Completed 11/07/2017, 08/27/2012 Meningococcal B Vaccine Completed 03/15/20, 03/19/2018, 11/07/2017 Hepatitis B Vaccine Completed 07/29/2021, 04/17/2021, 03/15/2021, Additional history exists Goals Goal Patient Goal Type Associated Problems Recent Progress Patient-Stated? Author Blood Pressure < 140/90 Blood Pressure 124/72(2023 1:32 PM EST) No Chely Amezcua LPN Maintain a healthy diet, exercise regularly and maintain an ideal body weight General No Zora Khan, DIANNE Procedures Procedure Name Priority Date/Time Associated Diagnosis Comments GC CHLAMYDIA THIN PREP Routine 04/19/2023 10:30 AM EDT Encounter for supervision of other normal in first trimester SPINNER TENDER CYTOLOGY REQUEST (PAP ONLY) Routine 04/19/2023 10:30 AM EDT Encounter for supervision of other normal in first trimester from Last 3 Months or Most Recently Relevant to Health Maintenance Results * SPINNER TENDER CYTOLOGY REQUEST (PAP ONLY) (04/19/2023 10:30 AM EDT) CASE REPORT Gynecologic Cytology Report Case: [id number] Authorizing Provider: Carmel Holder Collected: 04/19/2023 1030 MD Lachelle Ordering Location: [facility] Received: 04/19/2023 1030 First Screen: Mildred Roman CT Specimen: LIQUID-BASED PAP - CERVICAL/ENDOCERV ICAL, Cervix, Endocervical 04/25/2023 11:59 AM EDT [facility] PAP FINAL DIAGNOSIS Negative for intraepithelial lesion or malignancy 04/25/2023 11:59 AM EDT [facility] at 1159 EDT MICROSCOPIC DESCRIPTION Microscopic examination is performed and the findings corroborate the diagnosis. 04/25/2023 11:59 AM EDT [facility] PAP SMEAR ADEQUACY Satisfactory for evaluation 04/25/2023 11:59 AM EDT [facility] ENDOCERVICAL T-ZONE Transformation zone present 04/25/2023 11:59 AM EDT [facility] EMBEDDED IMAGES 11:59 AM EDT [facility] PAP DISCLAIMER The Pap Smear is a screening test that aids in the detection of cervical cancer and cancer precursors. Both false positive and false negative results can occur. The test should be used at regular intervals, and positive results should be confirmed before definitive therapy. Processed using the ThinPrep Jewel Setter Automated cytology screening device ([employer]). 04/25/2023 11:59 AM EDT [facility] Thin Prep ENDOCERVICAL STRUCTURE / Unknown 04/19/2023 10:30 AM EDT 04/19/2023 10:30 AM EDT Carmel Holder MD CYTOLOGY ORDERABL ES Final Result [address] [id number] * GC CHLAMYDIA THIN PREP (04/19/2023 10:30 AM EDT) Chlamydia trachomatis Not Detected Not Detected 04/20/2023 1:51 PM EDT [facility] Neisseria gonorrhoeae Not Detected Not Detected 04/20/2023 1:51 PM EDT [facility] Thin Prep SPECIMEN FROM UTERINE CERVIX / Unknown 04/19/2023 10:30 AM EDT 04/19/2023 10:30 AM EDT Narrative [facility] - 04/20/2023 1:51 PM EDT Testing methodology is logging worker mediated amplification (TMA) using the Aptima Combo 2 assay from light/Lighting by LED. A negative result does not completely rule out a Chlamydia trachomatis or Neisseria gonorrhoeae infection due to potential inhibitors or levels present below the limit of detection by this assay. Results are dependent on proper collection and transport of specimen. This test is indicated for medical purposes only and should not be used for legal or forensic purposes. The performance characteristics of this assay were validated by the testing laboratory. This assay is FDA cleared to test the following specimens: clinician-collected endocervical, vaginal, male urethral swab specimens, rectal swabs, and throat/pharyngeal swabs; patient collected vaginal specimens within a clinic setting; Thin Prep Specimens in PreservCyt Solution; and first-stream, unpreserved male and female urine specimens. Detailed methodology is available upon request. Carmel Holder MD MICROBIOLOGY - [facility] ORDERABLES Final Result [facility] [address] [facility] , [place] [address] from Last 3 Months or Most Recently Relevant to Health Maintenance Insurance ANTHEM PPO ANTHEM PPO ANTHEM PPO ANTHEM PPO * Guarantor: Deborah Tim Account Type Relation to Patient Date of Phone Billing Address [place] Personal Family Self Advance Directives For more information, please contact: [phone] * Full Code (Latest Code Status on File) Date Activated Date Inactivated Comments 10/20/2023 11:46 AM 10/22/2023 7:25 PM Care Teams Open Source Developer Relationship Specialty Start Date End Date Neeru Samuels MD [address] [place] [address] PCP - General Internal Medicine 07/05/23
== END 2025-02-12 23:59 | disposition home or self-care (01) ==
LOC: LAB 14:42
PROVIDERS: Visit Provider Obstetrics & Gynecology
DX: Z32.01 Encounter for pregnancy test, result positive (principal)
CPT/HCPCS: 36415; 84144; 84702

== ENCOUNTER 2025-03-26 15:01 | Outpatient (CLI) | payer BC, SELFPAY ==
[2025-03-26 16:13] LABS: Hematocrit 39.4 % (37.0-47.0); Hemoglobin 12.8 g/dL (12.2-16.2); Immature Granulocytes % 0.3 %; Mean Corpuscular HGB Conc 32.5 g/dL (31.8-35.4); Mean Corpuscular Hemoglobin 27.4 pg (27.0-31.2); Mean Corpuscular Volume 84.2 fl (81-99); Nucleated Red Blood Cells % 0 %; Platelet Count 330 K/mm3 (142-424); Red Blood Count 4.68 M/mm3 (4.20-5.40); Red Cell Distribution Width-SD 48.7 fL; White Blood Count 10.7 K/mm3 (4.8-10.8)
[2025-03-26 17:30] LABS: Hepatitis C Ab Qual. W/ RFX NEGATIVE (Negative)
[2025-03-27 08:29] LABS: RPR W/RFX Titers Nonreactive (Nonreactive)
[2025-03-28 07:10] LABS: Hepatitis B Surface Antigen Negative (Negative)
[2025-03-28 08:13] LABS: Rubella Antibodies, IgG 2.12 index (Immune >0.99)
[2025-03-31 22:23] LABS: Neisseria gonorrhoeae, NAA Negative (Negative)
== END 2025-03-26 23:59 | disposition home or self-care (01) ==
LOC: LAB 15:02
PROVIDERS: Visit Provider Obstetrics & Gynecology
DX: Z34.81 Encounter for supervision of other normal pregnancy, first trimester (principal); Z3A.00 Weeks of gestation of pregnancy not specified
CPT/HCPCS: 36415; 85025; 86592; 86762; 86803; 86850; 87086; 87340; 87389; 87491; 87591

== ENCOUNTER 2025-04-23 13:53 | Outpatient (CLI) | payer BC, SELFPAY ==
--- OUTSIDE RECORDS SUMMARY | 2025-03-12 17:46 | XMS_ITS | Encounter Summary ---
Author Organization [place] [address] Care Team Providers Care Metal Bumper Name Role Phone Neeru Samuels MD Primary Care Provider [phone]- [phone] Reason for Visit * Reason Comments Chest Pain Chest tightness, wor se with inspiration. Pt states she may be Encounter Details Date Type Department Care Team (Late st Contact Info) Description 03/12/2025 5:46 PM EDT - 03/12/2025 9:14 PM EDT Emergency [facility] [place] [address] Trent Tyler MD [address] [place] [address] [place] [address] Atypical chest pain (Primary Dx); [...] Sloan RN * Does this person have difficulty [...] 5:12 PM GORDONT Akanksha Bay RN * [place] Suicide Severity Rating Scale (Q shift for [...] PM EDT Follow-up with your PCP and PHOTOGRAMMETRIC ENGINEER. Tylenol as needed for pain. Return to ER with new or worsening concerns. documented in this encounter Medications at Time of Discharge ibuprofen (ADVIL;MOTRIN) 600 mg Oral Tablet Take 1 Tablet by mouth every 6 hours. Take with food. 60 Tablet 10/22/2023 vit no.571-jrxc-[id number] 27 mg iron- 800 mcg Oral Tablet Take 1 Tablet by mouth daily. sertraline (ZOLOFT) 25 mg Oral Tablet Take 25 mg by mouth daily. 10/29/2023 documented as of this encounter Discharge Disposition Disposition Code Departure Means Destination Comment s Home or Self Correction documented in this encounter ED Notes * [...] trimester . Patient otherwise to follow-up with PHOTOGRAMMETRIC ENGINEER in the outpatient setting. - History obtained [...] 07/15/2025 10:30 AM Neeru Samuels MD SEP [facility] LACHELLE FINAL IMPRESSION 1. Atypical chest pain [...] Take with food. 60 Tablet 0 vit no.055-ifdu-ymvmc 27 mg iron- 800 mcg Oral Tablet [...] Gran% 0.2 % Lymph Percent 18.6 % [place] Percent 6.6 % Eos Percent 0.8 % Baso Percent 0.2 % Neut # 7.8 (H) 1.6 - 6.1 x10(3)/mcL IMMGRAN# 0.0 0.0 - 0.1 x10(3)/mcL Lymph # 2.0 1.2 - 3.9 x10(3)/mcL [place] # 0.7 0.3 - 0.9 x10(3)/mcL Eos# 0.1 0.0 - 0.5 x10(3)/mcL Baso # 0.0 0.0 - 0.1 x10(3)/mcL TROPONIN-T HIGH SENSITIVITY BASELINE W/ REFLEX Result Value Ref Range ma-gEwzhyrfj-U <6 <14 ng/L Narrative Ingestion of haley [...] sample can interfere with this immunoassay test. [employer] Medicine TechnologyEAD TESTING PANEL Narrative The following orders were created for panel order GILEAD TESTING PANEL. 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: : 2000 Requested By: [facility] Order Number: [id number] Reading MD: Dylon Adan MD Measurements Intervals [place] Rate: 77 P: 42 WV: 158 QRS: 69 QRSD: 91 T: 43 [...] SEP Xenia Rivera IM [address] [place] [address] Neeru Samuels MD [address] [facility] [address] documented as of this encounter Goals [...] (ABNORMAL) D-DIMER (03/12/2025 8:25 PM EDT) Pathologist [facility] D-Dimer 633(H) <=500 ng/mL FEU 03/12/2025 8:44 PM EDT [facility] [employer] Comment:This is an automated latex enhanced immunoassay [...] ORDERABLES Fi nal Result Performing Organization Address [facility]/State/ZIP Co de Phone Number [facility] [employer] [address] , [address] [place] [id number] * HEPATITIS B SURFACE ANTIGEN (03/12/2025 7:35 PM EDT) Pathologist [facility] Hep Bs Ag Non-Reacti ve Non-React emilia 03/12/2025 8:44 PM EDT [facility] [employer] Comment:HBsAg not detected. Does not exclude possibility of exposure to HBV. Blood VENOUS BLOOD / Unknown Venipuncture / Unknown 03/12/2025 7:35 PM EDT 03/12/2025 7:42 PM EDT Narrative [facility] [employer] [facility] - 03/12/2025 8:44 PM EDT Test performed using [employer] electrochemiluminescence immunassay (ECLIA). Umang Gomez APRN CHEMISTRY ORDERABLES Fin al Result Performing Organization Address [facility]/ZIP Co de Phone Number PREFERRED [employer] [facility] [address] [facility] , [address] [place] [phone] * HCV ANTIBODY SCREEN W/ REFLEX (03/12/2025 7:35 PM EDT) Hep C Ab Non-Reacti ve Non-React emilia 03/12/2025 8:33 PM EDT PREFERRED [employer] [facility] Comment:No antibodies to HCV detected. Does not exclude possibility of exposure to HCV. Blood VENOUS BLOOD / Unknown Venipuncture / Unknown 03/12/2025 7:35 PM EDT 03/12/2025 7:42 PM EDT Narrative [facility] [employer] [facility] - 03/12/2025 8:33 PM EDT Test performed using [employer] electrochemiluminescence immunassay (ECLIA). Umang Gomez APRN HEMATOLOGY ORDERABLES Fi nal Result Performing Organization Address [facility] Co de Phone Number [facility] [employer] [facility] [address] [facility] , [place] [address] * HIV AG/AB (03/12/2025 7:35 PM EDT) Pathologist [facility] HIV Ag/AB Non-Reacti ve Non-Reacti ve 03/12/2025 8:44 PM EDT [facility] [employer] Comment:Negative for HIV-1 a ntigen and anti-HIV-1/anti-HIV-2 antibodies. Blood VENOUS BLOOD / Unknown Venipuncture / Unknown 03/12/2025 7:35 PM EDT 03/12/2025 7:42 PM EDT Narrative [employer] [facility] - 03/12/2025 8:44 PM EDT Test performed using Camila [employer] electrochemiluminescence immunassay (ECLIA). Umang Gomez APRN IMMUNOLOGY ORDERABLES Fi nal Result Performing Organization Address [facility]/ZIP Co de Phone Number [employer] [facility] [address] [facility] , [place] [address] * (ABNORMAL) HUMAN CHORIONIC GONADOTROPIN QUANTITATIVE (03/12/2025 7:35 PM EDT) Pathologist [facility] Hcg Quant 47,942(H) <5 mIU/mL 03/12/2025 8:14 PM EDT [facility] Blood VENOUS BLOOD / Unknown Venipuncture / Unknown 03/12/2025 7:35 PM EDT 03/12/2025 7:41 PM EDT Narrative [facility] - 03/12/2025 8:14 PM EDT Female [...] Fin al Result Performing Organization Address City/[facility]/[place] [address] * (ABNORMAL) LIPASE LEVEL (03/12/2025 7:35 PM EDT) [facility] Lipase Lvl 12(L) 13 - 60 U/L 03/12/2025 8:14 PM EDT [facility] Blood VENOUS BLOOD / Unknown Venipuncture / Unknown 03/12/2025 7:35 PM EDT 03/12/2025 7:41 PM EDT Umang Gomez APRN CHEMISTRY [place] [address] * (ABNORMAL) COMPREHENSIVE METABOLIC PANEL (03/12/2025 7:35 PM EDT) [facility] Sodium 134(L) 136 - 145 mmol/L 03/12/2025 8:14 PM [facility] Potassium 3.6 3.5 - 5.0 mmol/L 03/12/2025 8:14 PM [facility] Chloride 97(L) 98 - 107 mmol/L 03/12/2025 8:14 PM [facility] Total CO2 22 22 - 29 mmol/L 03/12/2025 8:14 PM [facility] Anion Gap 15 7 - 16 mmol/L 03/12/2025 8:14 PM [facility] Calcium 9.3 8.6 - 10.4 mg/dL 03/12/2025 8:14 PM [facility] Glucose Lvl 88 70 - 99 mg/dL 03/12/2025 8:14 PM [facility] BUN 6 6 - 20 mg/dL 03/12/2025 8:14 PM [facility] Creatinine 0.73 0.51 - 1.30 mg/dL 03/12/2025 8:14 PM [facility] Albumin 4.0 3.5 - 5.2 gm/dL 03/12/2025 8:14 PM [facility] Total Protein 7.8 6.4 - 8.3 gm/dL 03/12/2025 8:14 PM [facility] Bili Total 0.4 0.2 - 1.3 mg/dL 03/12/2025 8:14 PM [facility] ALT 21 <=41 U/L 03/12/2025 8:14 PM [facility] AST 15 <=40 U/L 03/12/2025 8:14 PM [facility] Alk Phos 94 36 - 123 U/L 03/12/2025 8:14 PM [facility] eGFR (CKD-EPIcr 2020) 118 >=60 mL/min/1.7 3 m2 03/12/2025 8:14 PM [facility] Comment:Estimated GFR was ca lculated using the CKD-EPIcr (2020) equation refit without race. The equation is recommended by the National Kidney Foundation - [place] [employer] of Nephrology Task Force. Blood VENOUS BLOOD / Unknown Venipuncture / Unknown 03/12/2025 7:35 PM EDT 03/12/2025 7:41 PM EDT Umang Gomez APRN CHEMISTRY ORDERABLES Fin al Result Performing Organization Address [facility] de Phone Number [facility] [address] [place] [address] * TROPONIN-T HIGH SENSITIVITY BASELINE W/ REFLEX (03/12/2025 7:35 PM EDT) Pathologist [facility] ok-wZhtetktg-R <6 <14 ng/L 03/12/2025 8:14 PM EDT [facility] Blood VENOUS BLOOD / Unknown Venipuncture / Unknown 03/12/2025 7:35 PM EDT 03/12/2025 7:41 PM EDT Narrative [facility] - 03/12/2025 8:14 PM EDT Ingestion of haley doses of biotin (>5 mg/day) taken within 8 hours of drawing blood sample can interfere with this immunoassay test. Umang Gomez APRN CHEMISTRY ORDERABLES Fin al Result Performing Organization Address [facility] [place] [address] * (ABNORMAL) CBC WITH DIFF (03/12/2025 7:35 PM EDT) Pathologist [facility] WBC 10.5(H) 3.7 - 10.3 x10(3)/mcL 03/12/2025 7:45 PM EDT [facility] RBC 4.78 3.90 - 5.20 x10(6)/mcL 03/12/2025 7:45 PM EDT [facility] Hgb 12.9 11.2 - 15.7 g/dL 03/12/2025 7:45 PM EDT [facility] Hct 39.9 34.0 - 45.0 % 03/12/2025 7:45 PM EDT [facility] MCV 83.5 80.0 - 100.0 fL 03/12/2025 7:45 PM EDT [facility] MCH 27.0 26.0 - 34.0 pg 03/12/2025 7:45 PM EDT [facility] MCHC 32.3 30.7 - 35.5 g/dL 03/12/2025 7:45 PM EDT [facility] RDW 15.7(H) <=14.9 % 03/12/2025 7:45 PM EDT [facility] Platelet 304 155 - 369 x10(3)/mcL 03/12/2025 7:45 PM EDT [facility] MPV 9.5 8.8 - 12.5 fL 03/12/2025 7:45 PM EDT [facility] Neut Percent 73.6 % 03/12/2025 7:45 PM EDT [facility] Comment:Neutrophils equals s egs plus bands Imm Gran% 0.2 % 03/12/2025 7:45 PM EDT [facility] Comment:Automated count of m etamyelocytes, myelocytes and promyelocytes. Lymph Percent 18.6 % 03/12/2025 7:45 PM EDT [facility] [place] Percent 6.6 % 03/12/2025 7:45 PM EDT [facility] Eos Percent 0.8 % 03/12/2025 7:45 PM EDT [facility] Baso Percent 0.2 % 03/12/2025 7:45 PM EDT [facility] Neut # 7.8(H) 1.6 - 6.1 x10(3)/mcL 03/12/2025 7:45 PM EDT [facility] Comment:Neutrophils equals s egs plus bands IMMGRAN# 0.0 0.0 - 0.1 x10(3)/mcL 03/12/2025 7:45 PM EDT [facility] Comment:Automated count of m etamyelocytes, myelocytes and promyelocytes. An absolute IG <0.1 is reported as 0.0. Lymph # 2.0 1.2 - 3.9 x10(3)/mcL 03/12/2025 7:45 PM EDT [facility] [place] # 0.7 0.3 - 0.9 x10(3)/mcL 03/12/2025 7:45 PM EDT [facility] Eos# 0.1 0.0 - 0.5 x10(3)/mcL 03/12/2025 7:45 PM EDT [facility] Baso # 0.0 0.0 - 0.1 x10(3)/mcL 03/12/2025 7:45 PM EDT [facility] Blood VENOUS BLOOD / Unknown Venipuncture / Unknown 03/12/2025 7:35 PM EDT 03/12/2025 7:41 PM EDT us Umang Gomez STEAM BRUSH OPERATOR HEMATOLOGY ORDERABLES Fi nal Result [facility] [address] [place] [address] * EK EKG 12 LEAD (03/12/2025 5:06 PM EDT) Anatomical Region Laterality Modality Electrocardiogra phy 03/12/2025 5:09 PM EDT Impressions 03/13/2025 10:[address] 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 [facility] Test Date: 2025-03-12 Pat Name: DEBORAH TIM Department: DEPID Room: Gender: Female Licensed Land Surveyor: Kobi : 2000 Requested By: [facility] Order Number: [id number] Sin MD: Dylon Adan MD Measurements Intervals [place] Rate: 77 P: 42 WV: 158 QRS: 69 QRSD: 91 T: 43 QT: 379 QTc: 430 Interpretive Statements SINUS RHYTHM Electronically Signed On 03-13-2025 10:19:16 EDT by Dylon Adan MD us Trent Tyler MD IMG ECG ORDERABLES Final Result documented in this encounter Visit Diagnoses Diagnosis Atypical chest pain- Primary Other chest pain First trimester documented in this encounter Care Teams Metal Bumper Relationship Specialty Start Date End Date Neeru Samuels MD [address] [place] [address] PCP - General Internal Medicine 07/05/23 documented as of this encounter
--- OUTSIDE RECORDS SUMMARY | 2025-04-23 13:59 | XMS_ITS | Clinical Summary ---
Author Organization [facility] Address [address] [place] [address] Phone Care Team Providers Care Dye Feeder Name Role Phone Neeru Samuels MD Primary Care Provider [phone]- [phone] Allergies Active Allergy Reactions Criticality Noted Date Comments Adhesive Rash Low 10/20/2023 Promethazine Other (See Comments) Medium Childhood reaction Medications vit no.[id number] c 27 mg iron- 800 mcg Oral [...] , antepartum 04/19/2023 04/05/2024 Overview (10/05/2023): G1. KARAN by 8 wk US. PNL normal Genetics undecided Anatomy wnl GCT 97 Gbs neg Encounters Date Type Department Care Team Description 03/12/2025 5:46 PM EDT - 03/12/2025 9:14 PM EDT Emergency [place] [address] Trent Tyler MD Atypical chest pain (Primary Dx); First trimester Discharge Disposition: Home or Self Care from Last 3 Months Immunizations Immunization Administration Dates Next Due DTaP 06/13/2005, 2,2001,02/2002 DTaP/HiB 12/24/2002 HPV 9 Valent 11/07/2017 HPV Quadrivalent 08/27/2012 Hep B/HiB 2001,2001 Hepatitis A, Ped/Adol, 2 Dose 08/27/2012, 006 Hepatitis B, Adult 07/29/2021,03/15/2021 Hepatitis B, Ped/Adol 04/17/2021,2001 HiB (PRP-T) 2001 IPV 06/13/2005, 2,2001,02/2002 Influenza Vaccine Quadrivalent PF 08/26/2021,04/2021 Influenza, Live, Intranasal 08/27/2012 LAST MANUFACTURED 2010-Pneum ococcal Conjugate 7 Valent 09/20/2002,2001,2001,02/2002 MMR 06/13/2005,09/20/2002 [...] Epidur al N Livin g 8 9 Abel crisostomo, Serene Bonner DO Complications:Gestational hy pertension, third trimester Delivery Location:[facility]) Last Filed Vital [...] Mass Index 38.41 03/12/2025 5:12 PM EDT Plan of Treatment Upcoming Encounters Date Type Department Care Team (Late st Contact Info) Description 07/15/2025 10:30 AM EST Office Visit [address] [address] Neeru Samuels MD [address] [place] [address] Health Maintenance Due Date Last Done Comments Chlamydia Screening 04/19/2024 04/19/2023 COVID-19 Vaccine ( season) 2025 05/15/2021, 04/17/2021 Influenza Vaccine (#1) 2025 2, 05/15/2021, 08/27/2012 [...] body weight General No Zora Khan, RMA Procedures Procedure Name Priority Date/Time Associated Diagnosis Comments D-DIMER STAT 03/12/2025 8:25 PM EDT HEPATITIS B SURFACE ANTIGEN Routine 03/12/2025 7:35 PM EDT HCV ANTIBODY SCREEN W/ REFLEX Routine 03/12/2025 7:35 PM EDT HIV AG/AB Routine 03/12/2025 7:35 PM EDT GILEAD TESTING PANEL Routine 03/12/2025 7:35 PM EDT HUMAN CHORIONIC GONADOTROPIN QUANTITATIVE STAT 03/12/2025 7:35 PM EDT LIPASE LEVEL STAT 03/12/2025 7:35 PM EDT COMPREHENSIVE METABOLIC PANEL STAT 03/12/2025 7:35 PM EDT TROPONIN-T HIGH SENSITIVITY BASELINE W/ REFLEX STAT 03/12/2025 7:35 PM EDT CBC WITH DIFF STAT 03/12/2025 7:35 PM EDT EK EKG 12 LEAD STAT 03/12/2025 5:06 PM EDT GC CHLAMYDIA THIN PREP Routine 10:30 AM EDT Encounter for supervision of other normal in first trimester ELEVATOR OPERATOR FREIGHT CYTOLOGY REQUEST (PAP ONLY) Routine 04/19/2023 10:30 AM EDT Encounter for supervision of other normal in first trimester from Last 3 Months or Most Recently Relevant to Health Maintenance Results * (ABNORMAL) D-DIMER (03/12/2025 8:25 PM EDT) D-Dimer 633(H) <=500 ng/mL FEU 03/12/2025 8:44 PM EDT [facility]REFERRED [facility] Comment:This is an automated latex enhanced immunoassay [...] ORDERABLES Fi nal Result Performing Organization Address [facility] de Phone Number [facility] [address] [facility] , [place] [address] * HIV AG/AB (03/12/2025 7:35 PM EDT) Pathologist [facility] [place] HIV Ag/AB Non-Reacti ve Non-Reacti ve 03/12/2025 8:44 PM EDT [facility] Comment:Negative for HIV-1 a ntigen and anti-HIV-1/anti-HIV-2 antibodies. Blood VENOUS BLOOD / Unknown Venipuncture / Unknown 03/12/2025 7:35 PM EDT 03/12/2025 7:42 PM EDT Narrative [facility] - 03/12/2025 8:44 PM EDT Test performed using [employer] electrochemiluminescence immunassay (ECLIA). Umang Gomez APRN IMMUNOLOGY ORDERABLES Fi nal Result Performing Organization Address [facility] de Phone Number [facility] [address] [facility] , [place] [address] * TROPONIN-T HIGH SENSITIVITY BASELINE W/ REFLEX (03/12/2025 7:35 PM EDT) [facility] yu-sIjjkacaw-W <6 <14 ng/L 03/12/2025 8:14 PM EDT [facility] Blood VENOUS BLOOD / Unknown Venipuncture / Unknown 03/12/2025 7:35 PM EDT 03/12/2025 7:41 PM EDT Narrative [facility] - 03/12/2025 8:14 PM EDT Ingestion of haley doses of biotin (>5 mg/day) taken within 8 hours of drawing blood sample can interfere with this immunoassay test. Umang Gomez APRN CHEMISTRY ORDERABLES Fin al Result Performing Organization Address [facility] Co de Phone Number [facility] [address] [place], [place] [id number] * HCV ANTIBODY SCREEN W/ REFLEX (03/12/2025 7:35 PM EDT) Hep C Ab Non-Reacti ve Non-React emilia 03/12/2025 8:33 PM EDT [facility] Comment:No antibodies to HCV detected. Does not exclude possibility of exposure to HCV. Blood VENOUS BLOOD / Unknown Venipuncture / Unknown 03/12/2025 7:35 PM EDT 03/12/2025 7:42 PM EDT Narrative [employer] [facility] - 03/12/2025 8:33 PM EDT Test performed using Camila Elecsys electrochemiluminescence immunassay (ECLIA). Umang Gomez APRN HEMATOLOGY ORDERABLES Fi nal Result Performing Organization Address [facility] de Phone Number [facility] [address] [place] [address] , [address] [place] [id number] * HEPATITIS B SURFACE ANTIGEN (03/12/2025 7:35 PM EDT) Pathologist [facility] [place] Hep Bs Ag Non-Reacti ve Non-React emilia 03/12/2025 8:44 PM EDT [employer] Comment:HBsAg not detected. Does not exclude possibility of exposure to HBV. Blood VENOUS BLOOD / Unknown Venipuncture / Unknown 03/12/2025 7:35 PM EDT 03/12/2025 7:42 PM EDT Narrative [employer] - 03/12/2025 8:44 PM EDT Test performed using Camila Elecsys electrochemiluminescence immunassay (ECLIA). Umang Gomez APRN CHEMISTRY ORDERABLES Fin al Result Performing Organization Address [facility] Co de Phone Number [employer] [address] [place] [address] , [place] [address] * (ABNORMAL) CBC WITH DIFF (03/12/2025 7:35 PM EDT) WBC 10.5(H) 3.7 - 10.3 x10(3)/mcL 03/12/2025 7:45 PM EDT [facility] RBC 4.78 3.90 - 5.20 x10(6)/mcL 03/12/2025 7:45 PM EDT [facility] Hgb 12.9 11.2 - 15.7 g/dL 03/12/2025 7:45 PM EDT [facility] Hct 39.9 34.0 - 45.0 % 03/12/2025 7:45 PM EDT [facility] MCV 83.5 80.0 - 100.0 fL 03/12/2025 7:45 PM EDT [facility] MCH 27.0 26.0 - 34.0 pg 03/12/2025 7:45 PM EDT [facility] MCHC 32.3 30.7 - 35.5 g/dL 03/12/2025 7:45 PM EDT [facility] RDW 15.7(H) <=14.9 % 03/12/2025 7:45 PM EDT [facility] Platelet 304 155 - 369 x10(3)/mcL 03/12/2025 7:45 PM EDT [facility] MPV 9.5 8.8 - 12.5 fL 03/12/2025 7:45 PM EDT [facility] Neut Percent 73.6 % 03/12/2025 7:45 PM EDT [facility] Comment:Neutrophils equals s egs plus bands Imm Gran% 0.2 % 03/12/2025 7:45 PM EDT [facility] Comment:Automated count of m etamyelocytes, myelocytes and promyelocytes. Lymph Percent 18.6 % 03/12/2025 7:45 PM EDT [facility] Heard Percent 6.6 % 03/12/2025 7:45 PM EDT [facility] Eos Percent 0.8 % 03/12/2025 7:45 PM EDT [facility] Baso Percent 0.2 % 03/12/2025 7:45 PM EDT [facility] Neut # 7.8(H) 1.6 - 6.1 x10(3)/[facility] 03/12/2025 7:45 PM EDT [facility] Comment:Neutrophils equals s egs plus bands IMMGRAN# 0.0 0.0 - 0.1 x10(3)/[facility] 03/12/2025 7:45 PM EDT [facility] Comment:Automated count of m etamyelocytes, myelocytes and promyelocytes. An absolute IG <0.1 is reported as 0.0. Lymph # 2.0 1.2 - 3.9 x10(3)/[facility] 03/12/2025 7:45 PM EDT [facility] Heard # 0.7 0.3 - 0.9 x10(3)/[facility] 03/12/2025 7:45 PM EDT [facility] Eos# 0.1 0.0 - 0.5 x10(3)/[facility] 03/12/2025 7:45 PM EDT [facility] Baso # 0.0 0.0 - 0.1 x10(3)/[facility] 03/12/2025 7:45 PM EDT [facility] Blood VENOUS BLOOD / Unknown Venipuncture / Unknown 03/12/2025 7:35 PM EDT 03/12/2025 7:41 PM EDT us Umang Gomez HARD [employer]OCK [employer]ING HEMATOLOGY ORDERABLES Fi nal Result [facility] [address] [place] [id number] * (ABNORMAL) HUMAN CHORIONIC GONADOTROPIN QUANTITATIVE (03/12/2025 7:35 PM EDT) [facility] Hcg Quant 47,942(H) <5 mIU/mL 03/12/2025 8:14 PM EDT [facility] Blood VENOUS BLOOD / Unknown Venipuncture / Unknown 03/12/2025 7:35 PM EDT 03/12/2025 7:41 PM EDT Narrative [facility] - 03/12/2025 8:14 PM EDT Female [...] ORDERABLES Fin al Result Performing Organization Address [facility] Co de Phone Number [facility] [address] [place] [address] * (ABNORMAL) LIPASE LEVEL (03/12/2025 7:35 PM EDT) Pathologist [facility] Lipase Lvl 12(L) 13 - 60 U/L 03/12/2025 8:14 PM EDT [facility] Blood VENOUS BLOOD / Unknown Venipuncture / Unknown 03/12/2025 7:35 PM EDT 03/12/2025 7:41 PM EDT Umang Gomez APRN CHEMISTRY ORDERABLES Fin al Result Performing Organization Address [facility] [place] [address] * (ABNORMAL) COMPREHENSIVE METABOLIC PANEL (03/12/2025 7:35 PM EDT) Sodium 134(L) 136 - 145 mmol/L 03/12/2025 8:14 PM EDT [facility] Potassium 3.6 3.5 - 5.0 mmol/L 03/12/2025 8:14 PM EDT [facility] Chloride 97(L) 98 - 107 mmol/L 03/12/2025 8:14 PM EDT [facility] Total CO2 22 22 - 29 mmol/L 03/12/2025 8:14 PM EDT [facility] Anion Gap 15 7 - 16 mmol/L 03/12/2025 8:14 PM EDT [facility] Calcium 9.3 8.6 - 10.4 mg/dL 03/12/2025 8:14 PM EDT [facility] Glucose Lvl 88 70 - 99 mg/dL 03/12/2025 8:14 PM EDT [facility] BUN 6 6 - 20 mg/dL 03/12/2025 8:14 PM EDT [facility] Creatinine 0.73 0.51 - 1.30 mg/dL 03/12/2025 8:14 PM EDT [facility] Albumin 4.0 3.5 - 5.2 gm/dL 03/12/2025 8:14 PM EDT [facility] Total Protein 7.8 6.4 - 8.3 gm/dL 03/12/2025 8:14 PM EDT [facility] Bili Total 0.4 0.2 - 1.3 mg/dL 03/12/2025 8:14 PM EDT [facility] ALT 21 <=41 U/L 03/12/2025 8:14 PM EDT [facility] AST 15 <=40 U/L 03/12/2025 8:14 PM EDT [facility] Alk Phos 94 36 - 123 U/L 03/12/2025 8:14 PM EDT [facility] eGFR (CKD-EPIcr 2020) 118 >=60 mL/min/1.7 3 m2 03/12/2025 8:14 PM EDT [facility] Comment:Estimated GFR was ca lculated using the CKD-EPIcr (2020) equation refit without race. The equation is recommended by the National Kidney Foundation - [place] [employer] of Nephrology Task Force. Blood VENOUS BLOOD / Unknown Venipuncture / Unknown 03/12/2025 7:35 PM EDT 03/12/2025 7:41 PM EDT us Umang Gomez HARD ROCK MINER BLASTING CHEMISTRY ORDERABLES Fin al Result [facility] [address] [place] [address] * EK EKG 12 LEAD (03/12/2025 5:06 PM EDT) Anatomical Region Laterality Modality Electrocardiogra phy 03/12/2025 5:09 PM EDT Impressions 03/13/2025 10:[address] [place] Test Date: 2025-03-12 Pat Name: [facility] Department: [facility] Room: Gender: Female Respiratory Therapist: : 2000 Requested By: [facility] Order Number: [id number] Reading MD: Dylon Adan MD Measurements Intervals Reader Rate: 77 P: 42 AK: 158 QRS: 69 QRSD: 91 T: 43 QT: 379 QTc: 430 Interpretive Statements SINUS RHYTHM Electronically Signed On 03-13-2025 10:19:16 EDT by Dylon Adan MD Narrative Procedure Note Dylon Adan MD - 03/13/[address] [place] Test Date: 2025-03-12 Pat Name: [facility] Department: [facility] Room: Gender: Female Respiratory Therapist: : 2000 Requested By: [facility] Order Number: [id number] Reading MD: Dylon Adan MD Measurements Intervals Reader Rate: 77 P: 42 AK: 158 QRS: 69 QRSD: 91 T: 43 QT: 379 QTc: 430 Interpretive Statements SINUS RHYTHM Electronically Signed On 03-13-2025 10:19:16 EDT by Dylon Adan MD Trent Tyler MD IMG ECG ORDERABLES Final Result * ELEVATOR OPERATOR FREIGHT CYTOLOGY REQUEST (PAP ONLY) (04/19/2023 10:30 AM EDT) CASE REPORT Gynecologic Cytology Report Case: [id number] Authorizing Provider: Carmel Holder Collected: 04/19/2023 1030 MD Lachel[facility] Ordering Location: [facility] Received: 04/19/2023 1030 First Screen: Mildred Roman CT Specimen: LIQUID-BASED PAP - CERVICAL/ENDOCERV ICAL, Cervix, Endocervical 04/25/2023 11:59 AM EDT [facility] PAP FINAL DIAGNOSIS Negative for intraepithelial lesion or malignancy 04/25/2023 11:59 AM EDT [facility] at 1159 EDT MICROSCOPIC DESCRIPTION Microscopic examination is performed and the findings corroborate the diagnosis. 04/25/2023 11:59 AM EDT [facility] PAP SMEAR ADEQUACY Satisfactory for evaluation 04/25/2023 11:59 AM EDT [facility] ENDOCERVICAL T-ZONE Transformation zone present 04/25/2023 11:59 AM EDT [facility] EMBEDDED IMAGES 11:59 AM EDT [facility] PAP DISCLAIMER The Pap Smear is a screening test that aids in the detection of cervical cancer and cancer precursors. Both false positive and false negative results can occur. The test should be used at regular intervals, and positive results should be confirmed before definitive therapy. Processed using the ThinPrep Stocking Inspector Automated cytology screening device ([employer]). 04/25/2023 11:59 AM EDT [facility] Thin Prep ENDOCERVICAL STRUCTURE / Unknown 04/19/2023 10:30 AM EDT 04/19/2023 10:30 AM EDT Carmel Holder MD CYTOLOGY ORDERABL ES Final Result [place] [id number] * GC CHLAMYDIA THIN PREP (04/19/2023 10:30 AM EDT) Chlamydia trachomatis Not Detected Not Detected 04/20/2023 1:51 PM EDT [facility] Neisseria gonorrhoeae Not Detected Not Detected 04/20/2023 1:51 PM EDT [facility] Thin Prep SPECIMEN FROM UTERINE CERVIX / Unknown 04/19/2023 10:30 AM EDT 04/19/2023 10:30 AM EDT Narrative [facility], [facility] - 04/20/2023 1:51 PM EDT Testing methodology is medical insurance clerk mediated amplification (TMA) using the Aptima Combo 2 assay from [employer]. A negative result does not completely rule [...] upon request. Carmel Holder MD MICROBIOLOGY - [facility] ORDERABLES Final Result [facility], [address], [place] [address] from Last 3 Months or Most Recently Relevant to Health Maintenance Insurance ANTHEM PPO ANTHEM PPO ANTHEM PPO ANTHEM PPO * Guarantor: Deborah Tim Account Type Relation to Patient Date of Phone Billing Address [place] Personal Family Self Advance Directives For more information, please contact: [phone] * Full Code (Latest Code Status on File) Date Activated Date Inactivated Comments 10/20/2023 11:46 AM 10/22/2023 7:25 PM Care Teams Dye Feeder Relationship Specialty Start Date End Date Neeru Samuels MD [address] [place] [address] PCP - General Internal Medicine 07/05/23
[2025-04-23 15:51] LABS: Glucose 1 Hour 77 mg/dL (74-100)
== END 2025-04-23 23:59 | disposition home or self-care (01) ==
LOC: LAB 13:54
PROVIDERS: Visit Provider Obstetrics & Gynecology
DX: Z34.90 Encounter for supervision of normal pregnancy, unspecified, unspecified trimester (principal); Z3A.00 Weeks of gestation of pregnancy not specified
CPT/HCPCS: 36415; 82947

== ENCOUNTER 2025-05-12 18:05 | Emergency (ER) | payer BC, SELFPAY ==
--- OUTSIDE RECORDS SUMMARY | 2024-04-24 05:15 | XMS_ITS | Continuity of Care Document ---
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 2023 Office/outpatient visit,[facility] 2023 X-RAY EXAM HIPS BI 3-4 VIEWS X-ray exam of knee, 4+ views Ko elastic w/joints pre ots Advance Directives Directive Yes / No Effective Date File Name No Information Encounters Encounter Description Practice Location Reason(s) For Visit Diagnoses Date Provider Providers Copied on Encounter Office/outpa tient visit,est, low [facility], [address], [place], [facility], [place] tel:[phone] Antimony Xenia Patellofemora l disorders, left knee Sep- 4 Carlene [address]nes. [address], [place], [place], [id number], [place]. tel:[phone] Referring Provider: [address], [place], [address]. tel:[phone] Office/outpa tient visit,[facility], [address] [place], [address], [place] tel:[phone] Antimony Argyle Patellofemora l disorders, left knee 4 Colosimo [place]. [address], [place], [place], [id number], . tel:[phone] Referring Provider: Dallas Eagle [address], [place], [address]. tel:[phone] [facility], [address], [place], [address], [place] tel:[phone] Antimony Xenia No Information 4 Colosimo [place]. [address], [place], [place], [id number], [place]. tel:[phone] Referring Provider: Dallas Eagle [address], [place], [address]. tel:[phone] Family History Family Member Type Diagnosis Age At Onset No Information Payers Payer name Insurance type Covered green party ID Gene szymanski(s) [employer] [place] - [id number] Social History Type Description Quantity Date Captured Comments Sex Female Smoking Status No Information Chief Complaint And Reason For Visit No Information Reason For Referral Reason For Referral No Information History Of Present Illness Encounter Date Complaint History Of Prese nt Illness No Information Functional Status Date Functional Assessmen t No Information Instructions Date Instruction Additional Infor mation No Information Assessments Type Assessment Date No Information Patient Care Teams Name Effective Dates (start - stop) Status Members No Information
--- OUTSIDE RECORDS SUMMARY | 2025-03-12 17:46 | XMS_ITS | Encounter Summary ---
Author Organization [place] [address] Care Team Providers Care Vice President Quality Assurance Name Role Phone Neeru Samuels MD Primary Care Provider [phone] Reason for Visit * Reason Comments Chest Pain Chest tightness, wor se with inspiration. Pt states she may be Encounter Details Date Type Department Care Team (Late st Contact Info) Description 03/12/2025 5:46 PM EDT - 03/12/2025 9:14 PM EDT Emergency [facility] [place] [address] Trent Tyler MD [address] [place] [address] [place] [address] Atypical chest pain (Primary Dx); First trimester Discharge Disposition: Home or Self Care Social History Tobacco Use Types Packs/Day Years Used Date Smoking Tobacco: Never Passive Smoke Exposure: Never Smokeless Tobacco: Never Alcohol Use Standard Drinks/Week Comments Not Currently [...] on file Sexual Orientation Not on file documented as of this encounter Last Filed Vital Signs Vital Sign Reading Time Taken Comments Blood Pressure 144/73 03/12/2025 9:00 PM EDT Pulse 65 03/12/2025 9:00 PM EDT Temperature 36.3 C (97.4 F) 03/12/2025 5:12 PM EDT Respiratory Rate 24 03/12/2025 9:00 PM EDT Oxygen Saturation 100% 03/12/2025 9:00 PM EDT Inhaled Oxygen Concentration - - Weight 108 kg (238 lb) 03/12/2025 5:12 PM EDT Height 167.6 cm (5' 6 ) 03/12/2025 5:12 PM EDT Body Mass Index 38.41 03/12/2025 5:12 PM EDT documented in this encounter Functional Status * Is the person deaf or does he/she have serious difficulty hearing? Answer Date of Assessment Author No 10/14/2023 6:51 PM Shagufta Sloan RN * Is the person blind or does he/she have serious difficulty seeing even when wearing glasses? Answer Date of Assessment Author No 10/14/2023 6:51 PM Shagufta Sloan RN * Does this person have serious difficulty walking or climbing stairs? Answer Date of Assessment Author No 10/14/2023 6:51 PM Shagufta Solan RN * Does this person have difficulty dressing or bathing? Answer Date of Assessment Author No 10/14/2023 6:51 PM Shagufta Sloan RN * Because of a physical, mental or emotional condition, does this person have difficulty doing errands alone such as visiting a doctor's office or shopping? Answer Date of Assessment Author No 10/14/2023 6:51 PM Shagufta Sloan RN * Suicide Severity Rating Answer Date of Assessment Author No Risk 03/12/2025 5:12 PM [place] Akanksha Bay RN * [place] Suicide Severity Rating Scale (Q shift for moderate and high) Question Answer Date of Assessment Author 1. In the past month, have y ou wished you were or wished you could go to sleep and not wake up? 0 03/12/2025 5:12 PM EDT Dinesh Bay RN 2. In the past month, have y ou actually had any thoughts of killing yourself? (If no, skip to question 6) 0 03/12/2025 5:12 PM EDT Akanksha Bay RN 6. Have you ever done anythi ng, started to do anything, or prepared to do anything to end your life? 0 03/12/2025 5:12 PM EDT Akanksha Mcdonald RN documented as of this encounter Mental Status * Because of a physical, mental or emotional condition, does this person have serious difficulty concentrating, remembering or making decisions? Answer Entry Date Author No 10/14/2023 6:51 PM Shagufta Sloan RN documented in this encounter Discharge Instructions * Discharge Instructions* Umang Gomez APRN - 03/12/2025 9:03 PM EDT Follow-up with your PCP and [facility]. Tylenol as needed for pain. Return to ER with new or worsening concerns. documented in this encounter Medications at Time of Discharge ibuprofen (ADVIL;MOTRIN) 600 mg Oral Tablet Take 1 Tablet by mouth every 6 hours. Take with food. 60 Tablet 10/22/2023 vit no.[id number] 27 mg iron- 800 mcg Oral Tablet Take 1 Tablet by mouth daily. sertraline (ZOLOFT) 25 mg Oral Tablet Take 25 mg by mouth daily. 10/29/2023 documented as of this encounter Discharge Disposition Disposition Code Departure Means Destination Comment s Home or Self Mcfp documented in this encounter ED Notes * Umang Gomez APRN - 03/12/2025 5:04 PM EDT CHIEF COMPLAINT Chief Complaint Patient presents with Chest Pain Chest tightness, worse with inspiration. Pt states she may be Attending physician Trent Fish MD ED COURSE & MEDICAL DECISION MAKING Deborah Tim is a 24 y.o. female with a PMHx listed below presenting with chest tightness and concern for # Chest tightness (Acute) - Presents with intermittent chest tightness occasionally pleuritic on exam is well-appearing nontoxic afebrile hemodynamically stable without tachypnea, labored respiratory effort or hypoxia suggestive of acute respiratory distress. She is fairly low risk for VTE or more specifically PE however inthe setting of and prothrombotic risk D-dimer was obtained for further restratification. Based on years criteria and adjusted D-dimer cutoff in the setting of it is within normal limits less than 1000 so further diagnostic testing deferred at this time. Doubt ACS given age and lack of significant comorbidities and risk factors. EKG troponin reassuring. Doubt peripartum cardiomyopathy patient is euvolemic on exam with clear lungs on auscultation. Given paucity of respiratory symptoms and lack of infectious symptoms doubt pneumonia, chest x-ray was deferred in leave of earlypregnancy after discussion regarding risks of radiation exposure. Patient symptoms seem to improve fairly spontaneously in the ER after reassuring workup she is felt stable for discharge and outpatient follow-up. # Concern for (Acute) - Last menstrual period sometime in January per her reports. She denies any vaginal bleeding, changes in discharge, abdominal cramping, leakage of fluid or other related complaints but does note nausea which she attributes to early symptoms. Abdomen is soft and benign. hCG quant isconsistent with first trimester . Patient otherwise to follow-up with [facility]ICE [facility] in the outpatient setting. - History obtained by patient as well as chart review. - Pertinent Labs & Imaging studies reviewed. (See chart for ordered tests and details). ED COURSE - Consultants: None - Social Determinants of Health: Noncontributory - Care of patient discussed with nursing team and nursing documentation reviewed. Medications Administered Medications - No data to display Prescriptions Written ED Current Prescriptions None Future Appointments Future Appointments Date Time Provider Department Center 07/15/2025 10:30 AM Neeru Samuels MD SEP [facility] FINAL IMPRESSION 1. Atypical chest pain 2. First trimester HPI Deborah Tim is a 24 y.o. female presenting with chest tightness . Patient reports 1 day history of symptoms. She also believes she may be as her last menstrual period was sometime in January and she feels somewhat nauseous. She reports occasional shortness of breath and occasional pleuritic nature to her pain. Denies lightheadedness or dizziness. Denies abdominal pain. Denies vaginal bleeding, discharge or urinary complaints. Denies leg swelling, hemoptysis, recent trauma, surgery, travel or immobilization. Denies prior history of VTE or PE. Denies HRT. Does report cardiac issues on her mother side primarily with her grandfather. Denies any personal history of cardiac issues. Denies obvious exertional component to her pain. Denies fevers or chills. REVIEW OF SYSTEMS A complete review of systems is negative except as noted in the HPI. PAST MEDICAL HISTORY Past Medical History: Diagnosis Date Hypertension Post depression FAMILY HISTORY Family History Problem Relation Age of Onset Diabetes Mother Hypertension Mother Other (pre-eclampsia) Mother Breast Cancer Paternal Aunt Heart Attack Maternal Grandfather 40 had PM Anemia Maternal Grandfather Skin Cancer Paternal Grandmother Diabetes Paternal Grandfather SOCIAL HISTORY Social History Socioeconomic History Marital status: Single Spouse name: None Number of children: None Years of education: None Highest education level: None Tobacco Use Smoking status: Never Passive exposure: Never Smokeless tobacco: Never Vaping Use Vaping status: Never Used Substance and Sexual Activity Alcohol use: Not Currently Comment: social Drug use: Never Sexual activity: Yes Partners: Male SURGICAL HISTORY Past Surgical History: Procedure Laterality Date TONSILLECTOMY 2006 CURRENT MEDICATIONS No current facility-administered medications on file prior to encounter. Current Outpatient Medications on File Prior to Encounter Medication Sig Dispense Refill ibuprofen (ADVIL;MOTRIN) 600 mg Oral Tablet Take 1 Tablet by mouth every 6 hours. Take with food. 60 Tablet 0 vit no.[id number] 27 mg iron- 800 mcg Oral Tablet Take 1 Tablet by mouth daily. (Patient not taking: Reported on 07/11/2024) sertraline (ZOLOFT) 25 mg Oral Tablet Take 25 mg by mouth daily. ALLERGIES Allergies Allergen Reactions Phenergan [Promethazine] Other (See Comments) Childhood reaction Adhesive Rash PHYSICAL EXAM VITAL SIGNS: ED Triage Vitals Temp 03/12/25 1712 97.4 ??F (36.3 ??C) Pulse 03/12/25 1705 98 Resp 03/12/25 1705 20 BP 03/12/25 1712 152/77 SpO2 03/12/25 1705 100 % Height 03/12/25 1712 5' 6 (1.676 m) Weight 03/12/25 1712 238 lb (108 kg) Constitutional: Appears nontoxic. No acute distress. HENT: Atraumatic. Normocephalic. Eyes: Conjunctiva normal. EOMI Neck: ROM normal, supple. Cardiovascular: Regular rate and regular rhythm. Extremities appear warm and well perfused. Thorax & Lungs: Respiratory effort normal. Lungs CTAB Abdomen: Nondistended. Nontender. Musculoskeletal: No deformity or swelling. Moves all 4 extremities spontaneously with apparent equal strength. Skin: Warm and dry. Neurologic: Awake and alert. LABS/RADIOLOGY Reviewed (See Orders) Results for orders placed or performed during the hospital encounter of 03/12/25 CBC WITH DIFF Result Value Ref Range WBC 10.5 (H) 3.7 - 10.3 x10(3)/mcL RBC 4.78 3.90 - 5.20 x10(6)/mcL Hgb 12.9 11.2 - 15.7 g/dL Hct 39.9 34.0 - 45.0 % MCV 83.5 80.0 - 100.0 fL MCH 27.0 26.0 - 34.0 pg MCHC 32.3 30.7 - 35.5 g/dL RDW 15.7 (H) <=14.9 % Platelet 304 155 - 369 x10(3)/mcL MPV 9.5 8.8 - 12.5 fL Neut Percent 73.6 % Imm Gran% 0.2 % Lymph Percent 18.6 % Pike Percent 6.6 % Eos Percent 0.8 % Baso Percent 0.2 % Neut # 7.8 (H) 1.6 - 6.1 x10(3)/mcL IMMGRAN# 0.0 0.0 - 0.1 x10(3)/mcL Lymph # 2.0 1.2 - 3.9 x10(3)/mcL Pike # 0.7 0.3 - 0.9 x10(3)/mcL Eos# 0.1 0.0 - 0.5 x10(3)/mcL Baso # 0.0 0.0 - 0.1 x10(3)/mcL TROPONIN-T HIGH SENSITIVITY BASELINE W/ REFLEX Result Value Ref Range bv-gTibywlnd-K <6 <14 ng/L Narrative Ingestion of haley doses of biotin (>5 mg/day) taken within 8 hours of drawing blood sample can interfere with this immunoassay test. COMPREHENSIVE METABOLIC PANEL Result Value Ref Range Sodium 134 (L) 136 - 145 mmol/L Potassium 3.6 3.5 - 5.0 mmol/L Chloride 97 (L) 98 - 107 mmol/L Total CO2 22 22 - 29 mmol/L Anion Gap 15 7 - 16 mmol/L Calcium 9.3 8.6 - 10.4 mg/dL Glucose Lvl 88 70 - 99 mg/dL BUN 6 6 - 20 mg/dL Creatinine 0.73 0.51 - 1.30 mg/dL Albumin 4.0 3.5 - 5.2 gm/dL Total Protein 7.8 6.4 - 8.3 gm/dL Bili Total 0.4 0.2 - 1.3 mg/dL ALT 21 <=41 U/L AST 15 <=40 U/L Alk Phos 94 36 - 123 U/L eGFR (CKD-EPIcr 2020) 118 >=60 mL/min/1.73 m2 LIPASE LEVEL Result Value Ref Range Lipase Lvl 12 (L) 13 - 60 U/L HUMAN CHORIONIC GONADOTROPIN QUANTITATIVE Result Value Ref Range Hcg Quant 47,942 (H) <5 mIU/mL Narrative Female (non-): 0-4.9 mIU/mL Female (postmenopausal): 0-8.1 mIU/mL Indeterminate values for (e.g., 5-25 mIU/mL) may be confirmed with a repeat test in 48-72hours. Values in should double every 2-3 days for the first six weeks. Ingestion of haley doses of biotin (>5 mg/day) taken within 8 hours of drawing blood sample can interfere with this immunoassay test. ProfitablyEAD TESTING PANEL Narrative The following orders were created for panel order GILEAD TESTING PANEL. Procedure Abnormality Status --------- ------ HIV AG/AB[[id number]] Normal Final result HCV ANTIBODY SCREEN W/ R...[[id number]] Normal Final result HEPATITIS B SURFACE ANTIGEN[[id number]] Normal Final result Please view results for these tests on the individual orders. HIV AG/AB Result Value Ref Range HIV Ag/AB Non-Reactive Non-Reactive Narrative Test performed using Cam[employer] Elecsys electrochemiluminescence immunassay (ECLIA). HCV ANTIBODY SCREEN W/ REFLEX Result Value Ref Range Hep C Ab Non-Reactive Non-Reactive Narrative Test performed using Camila Elecsys electrochemiluminescence immunassay (ECLIA). HEPATITIS B SURFACE ANTIGEN Result Value Ref Range Hep Bs Ag Non-Reactive Non-Reactive Narrative Test performed using Camila Elecsys electrochemiluminescence immunassay (ECLIA). D-DIMER Result Value Ref Range D-Dimer 633 (H) <=500 ng/mL FEU EK EKG [address] [facility] Test Date: 2025-03-12 Pat Name: 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 Test Date: 2025-03-12 Pat Name: [facility] Department: DEPID Room: Gender: Female Pickling Solution Maker: : 2000 Requested By: [facility] Order Number: [id number] Reading MD: Dylon Adan MD Measurements Intervals [place] Rate: 77 P: 42 ME: 158 QRS: 69 QRSD: 91 T: 43 QT: 379 QTc: 430 Interpretive Statements SINUS RHYTHM Electronically Signed On 03-13-2025 10:19:16 EDT by Dylon Adan MD Abnormal Labs Reviewed CBC WITH DIFF - Abnormal; Notable for the following components: Result Value WBC 10.5 (*) RDW 15.7 (*) Neut # 7.8 (*) All other components within normal limits COMPREHENSIVE METABOLIC PANEL - Abnormal; Notable for the following components: Sodium 134 (*) Chloride 97 (*) All other components within normal limits LIPASE LEVEL - Abnormal; Notable for the following components: Lipase Lvl 12 (*) All other components within normal limits HUMAN CHORIONIC GONADOTROPIN QUANTITATIVE - Abnormal; Notable for the following components: Hcg Quant 47,942 (*) All other components within normal limits Narrative: Female (non-): 0-4.9 mIU/mL Female (postmenopausal): 0-8.1 mIU/mL Indeterminate values for (e.g., 5-25 mIU/mL) may be confirmed with a repeat test in 48-72hours. Values in should double every 2-3 days for the first six weeks. Ingestion of haley doses of biotin (>5 mg/day) taken within 8 hours of drawing blood sample can interfere with this immunoassay test. D-DIMER - Abnormal; Notable for the following components: D-Dimer 633 (*) All other components within normal limits EKG See attending interpretation PROCEDURES/ULTRASOUND DISPOSITION Risks, benefits, and alternatives were discussed. At this time the patient has been deemed safe fordischarge. My customary discharge instructions including strict return precautions for worsening ornew symptoms have been communicated. CRITICAL CARE Condition at Discharge/Transfer from Department/Shift Turnover: Improved In cases where narcotics are prescribed, CASSIDY report was obtained, reviewed, and made part of record. After examining available information, and risks of prescribing or dispensing controlled substances was explained to the patient (including non-treatment or other treatment), it is considered medically appropriate to administer narcotics as prescribed. This note was dictated using voice-recognition software, which occasionally construes inadvertent typographic errors. Umang Gomez APRN 03/13/25 1420 Cosigned by Trent Tyler MD at 03/13/2025 2:52 PM EDT Associated attestation - Trent Tyler MD - 03/13/2025 2:52 PM EDT I personally approved the management of this patient, was available for consultation throughout their evaluation, and take responsibility for the patient management. I independently interpreted all data including EKG's, x-rays and laboratory studies. This chart was completed using voice recognition technology and may contain unintended errors documented in this encounter Plan of Treatment Upcoming Encounters Date Type Department Care Team (Late st Contact Info) Description 07/15/2025 10:30 AM EST Office Visit SEP [facility] [address] [place] [address] Neeru Sameuls MD [address] [facility] [address] documented as of this encounter Goals Goal Patient Goal Type Associated Problems Recent Progress Patient-Stated? Author Blood Pressure < 140/90 Blood Pressure 144/73(2024 9:00 PM EDT) No Chely Amezcua LPN Maintain a healthy diet, exercise regularly and maintain an ideal body weight General No Zora Khan, RMA documented as of this encounter Procedures Procedure Name Priority Date/Time Associated Diagnosis Comments D-DIMER STAT 03/12/2025 8:25 PM EDT HIV AG/AB Routine 03/12/2025 7:35 PM EDT GILEAD TESTING PANEL Routine 03/12/2025 7:35 PM EDT TROPONIN-T HIGH SENSITIVITY BASELINE W/ REFLEX STAT 03/12/2025 7:35 PM EDT HCV ANTIBODY SCREEN W/ REFLEX Routine 03/12/2025 7:35 PM EDT HEPATITIS B SURFACE ANTIGEN Routine 03/12/2025 7:35 PM EDT CBC WITH DIFF STAT 03/12/2025 7:35 PM EDT HUMAN CHORIONIC GONADOTROPIN QUANTITATIVE STAT 03/12/2025 7:35 PM EDT LIPASE LEVEL STAT 03/12/2025 7:35 PM EDT COMPREHENSIVE METABOLIC PANEL STAT 03/12/2025 7:35 PM EDT EK EKG 12 LEAD STAT 03/12/2025 5:06 PM EDT documented in this encounter Results * (ABNORMAL) D-DIMER (03/12/2025 8:25 PM EDT) Pathologist [facility] D-Dimer 633(H) <=500 ng/mL FEU 03/12/2025 8:44 PM EDT [facility] [employer] Comment:This is an automated latex enhanced immunoassay for the quantitative determination of D-Dimer that may be used, in conjunction with a clinical pretest probability assessment, to exclude venous thromboembolism in patients suspected of deep venous thrombosis (DVT) and pulmonary embolism (PE). The cutoff for exclusion of DVT and PE is 500 ng/mL Fibrinogen Equivalent Units (FEU). Elevated D-Dimer levels may be associated with PE, DVT, disseminated intravascular coagulation, recent surgery, recent bleeding, , malignancy, and inflammation. Blood VENOUS BLOOD / Unknown Venipuncture / Unknown 03/12/2025 8:25 PM EDT 03/12/2025 8:33 PM EDT Umang Gomez APRN HEMATOLOGY ORDERABLES Fi nal Result Performing Organization Address [facility]/State/ZIP Co de Phone Number [facility] [employer] [address] , [address] [place] [phone] * HEPATITIS B SURFACE ANTIGEN (03/12/2025 7:35 PM EDT) Pathologist [facility] Emergency Department Hep Bs Ag Non-Reacti ve Non-React emilia 03/12/2025 8:44 PM EDT [facility] [employer] Comment:HBsAg not detected. Does not exclude possibility of exposure to HBV. Blood VENOUS BLOOD / Unknown Venipuncture / Unknown 03/12/2025 7:35 PM EDT 03/12/2025 7:42 PM EDT Narrative [facility] - 03/12/2025 8:44 PM EDT Test performed using Camila Elecsys electrochemiluminescence immunassay (ECLIA). Umang Gomez APRN CHEMISTRY ORDERABLES Fin al Result Performing Organization Address [facility]/ZIP Co de Phone Number [facility] [address] , [address] [place] [phone] * HCV ANTIBODY SCREEN W/ REFLEX (03/12/2025 7:35 PM EDT) Hep C Ab Non-Reacti ve Non-React emilia 03/12/2025 8:33 PM EDT [facility] Comment:No antibodies to HCV detected. Does not exclude possibility of exposure to HCV. Blood VENOUS BLOOD / Unknown Venipuncture / Unknown 03/12/2025 7:35 PM EDT 03/12/2025 7:42 PM EDT Narrative [facility] - 03/12/2025 8:33 PM EDT Test performed using Camila Elecsys electrochemiluminescence immunassay (ECLIA). Umang Gomez APRN HEMATOLOGY ORDERABLES Fi nal Result Performing Organization Address [facility] Co de Phone Number [facility] [address] , [place] [address] * HIV AG/AB (03/12/2025 7:35 PM EDT) Pathologist [facility] Emergency Department HIV Ag/AB Non-Reacti ve Non-Reacti ve 03/12/2025 8:44 PM EDT [facility] [employer] Comment:Negative for HIV-1 a ntigen and anti-HIV-1/anti-HIV-2 antibodies. Blood VENOUS BLOOD / Unknown Venipuncture / Unknown 03/12/2025 7:35 PM EDT 03/12/2025 7:42 PM EDT Narrative [email or web address] [facility] - 03/12/2025 8:44 PM EDT Test performed using Camila Elecsys electrochemiluminescence immunassay (ECLIA). Umang Gomez APRN IMMUNOLOGY ORDERABLES Fi nal Result Performing Organization Address [facility]/ZIP Co de Phone Number [email or web address] [facility] [address] [place] [address] * (ABNORMAL) HUMAN CHORIONIC GONADOTROPIN QUANTITATIVE (03/12/2025 7:35 PM EDT) Pathologist [facility] Department Hcg Quant 47,942(H) <5 mIU/mL 03/12/2025 8:[address] [facility] Blood VENOUS BLOOD / Unknown Venipuncture / Unknown 03/12/2025 7:35 PM EDT 03/12/2025 7:41 PM EDT Narrative [facility] - 03/12/2025 8:14 PM EDT Female (non-): 0-4.9 mIU/mL Female (postmenopausal): 0-8.1 mIU/mL Indeterminate values for (e.g., 5-25 mIU/mL) may be confirmed with a repeat test in 48-72 hours. Values in should double every 2-3 days for the first six weeks. Ingestion of haley doses of biotin (>5 mg/day) taken within 8 hours of drawing blood sample can interfere with this immunoassay test. Umang Gomez APRN CHEMISTRY ORDERABLES Fin al Result Performing Organization Address City/[facility]/[place] [address] * (ABNORMAL) LIPASE LEVEL (03/12/2025 7:35 PM EDT) [facility] Lipase Lvl 12(L) 13 - 60 U/L 03/12/2025 8:14 PM EDT [facility] Blood VENOUS BLOOD / Unknown Venipuncture / Unknown 03/12/2025 7:35 PM EDT 03/12/2025 7:41 PM EDT Umang Gomez APRN CHEMISTRY [place] [address] * (ABNORMAL) COMPREHENSIVE METABOLIC PANEL (03/12/2025 7:35 PM EDT) [facility] Sodium 134(L) 136 - 145 mmol/L 03/12/2025 8:14 PM [facility] Potassium 3.6 3.5 - 5.0 mmol/L 03/12/2025 8:14 PM [facility] Chloride 97(L) 98 - 107 mmol/L 03/12/2025 8:14 PM [facility] Total CO2 22 22 - 29 mmol/L 03/12/2025 8:14 PM [facility] Anion Gap 15 7 - 16 mmol/L 03/12/2025 8:14 PM [facility] Calcium 9.3 8.6 - 10.4 mg/dL 03/12/2025 8:14 PM [facility] Glucose Lvl 88 70 - 99 mg/dL 03/12/2025 8:14 PM [facility] BUN 6 6 - 20 mg/dL 03/12/2025 8:14 PM [facility] Creatinine 0.73 0.51 - 1.30 mg/dL 03/12/2025 8:14 PM [facility] Albumin 4.0 3.5 - 5.2 gm/dL 03/12/2025 8:14 PM [facility] Total Protein 7.8 6.4 - 8.3 gm/dL 03/12/2025 8:14 PM [facility] Bili Total 0.4 0.2 - 1.3 mg/dL 03/12/2025 8:14 PM [facility] ALT 21 <=41 U/L 03/12/2025 8:14 PM [facility] AST 15 <=40 U/L 03/12/2025 8:14 PM [facility] Alk Phos 94 36 - 123 U/L 03/12/2025 8:14 PM [facility] eGFR (CKD-EPIcr 2020) 118 >=60 mL/min/1.7 3 m2 03/12/2025 8:14 PM [facility] Comment:Estimated GFR was ca lculated using the CKD-EPIcr (2020) equation refit without race. The equation is recommended by the National Kid[employer] - [place] [employer]ph[employer] Task Force. Blood VENOUS BLOOD / Unknown Venipuncture / Unknown 03/12/2025 7:35 PM EDT 03/12/2025 7:41 PM EDT Umang Gomez APRN CHEMISTRY ORDERABLES Fin al Result Performing Organization Address [facility] de Phone Number [facility] [address] [place] [address] * TROPONIN-T HIGH SENSITIVITY BASELINE W/ REFLEX (03/12/2025 7:35 PM EDT) Pathologist [facility] Emergency Department gh-wOfsbvfjr-H <6 <14 ng/L 03/12/2025 8:[address] [facility] Blood VENOUS BLOOD / Unknown Venipuncture / Unknown 03/12/2025 7:35 PM EDT 03/12/2025 7:41 PM EDT Narrative [facility] - 03/12/2025 8:14 PM EDT Ingestion of haley doses of biotin (>5 mg/day) taken within 8 hours of drawing blood sample can interfere with this immunoassay test. Umang Gomez APRN CHEMISTRY ORDERABLES Fin al Result Performing Organization Address [facility] [place] [address] * (ABNORMAL) CBC WITH DIFF (03/12/2025 7:35 PM EDT) Pathologist [facility] Emergency Department WBC 10.5(H) 3.7 - 10.3 x10(3)/mcL 03/12/2025 7:45 PM EDT [facility] RBC 4.78 3.90 - 5.20 x10(6)/mcL 03/12/2025 7:[address] [facility] Hgb 12.9 11.2 - 15.7 g/dL 03/12/2025 7:45 PM EDT [facility] Hct 39.9 34.0 - 45.0 % 03/12/2025 7:45 PM EDT [facility] MCV 83.5 80.0 - 100.0 fL 03/12/2025 7:[address] [facility] MCH 27.0 26.0 - 34.0 pg 03/12/2025 7:[address] [facility] MCHC 32.3 30.7 - 35.5 g/dL 03/12/2025 7:[address] [facility] RDW 15.7(H) <=14.9 % 03/12/2025 7:[address] [facility] Platelet 304 155 - 369 x10(3)/mcL 03/12/2025 7:[address] [facility] MPV 9.5 8.8 - 12.5 fL 03/12/2025 7:[address] [facility] Neut Percent 73.6 % 03/12/2025 7:[address] [facility] Comment:Neutrophils equals s egs plus bands Imm Gran% 0.2 % 03/12/2025 7:45 PM EDT [facility] Comment:Automated count of m etamyelocytes, myelocytes and promyelocytes. Lymph Percent 18.6 % 03/12/2025 7:[address] [facility] Pike Percent 6.6 % 03/12/2025 7:[address] [facility] Eos Percent 0.8 % 03/12/2025 7:[address] [facility] Baso Percent 0.2 % 03/12/2025 7:[address] [facility] Neut # 7.8(H) 1.6 - 6.1 x10(3)/mcL 03/12/2025 7:45 PM EDT [facility] Comment:Neutrophils equals s egs plus bands IMMGRAN# 0.0 0.0 - 0.1 x10(3)/mcL 03/12/2025 7:45 PM EDT [facility] Comment:Automated count of m etamyelocytes, myelocytes and promyelocytes. An absolute IG <0.1 is reported as 0.0. Lymph # 2.0 1.2 - 3.9 x10(3)/mcL 03/12/2025 7:45 PM EDT [facility] Pike # 0.7 0.3 - 0.9 x10(3)/mcL 03/12/2025 7:45 PM EDT [facility] Eos# 0.1 0.0 - 0.5 x10(3)/mcL 03/12/2025 7:45 PM EDT [facility] Baso # 0.0 0.0 - 0.1 x10(3)/mcL 03/12/2025 7:45 PM EDT [facility] Blood VENOUS BLOOD / Unknown Venipuncture / Unknown 03/12/2025 7:35 PM EDT 03/12/2025 7:41 PM EDT us Umang Gomez DISTRICT CLAIMS MANAGER HEMATOLOGY ORDERABLES Fi nal Result [facility] [address] [place] [address] * EK EKG 12 LEAD (03/12/2025 5:06 PM EDT) Anatomical Region Laterality Modality Electrocardiogra phy 03/12/2025 5:09 PM EDT Impressions 03/13/2025 10:[address] 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 Test Date: 2025-03-12 Pat Name: DEBORAH TIM Department: DEPID Room: Gender: Female Pickling Solution Maker: Kobi : 2000 Requested By: [facility] Order Number: [id number] Sin MD: Dylon Adan MD Measurements Intervals [place] Rate: 77 P: 42 ME: 158 QRS: 69 QRSD: 91 T: 43 QT: 379 QTc: 430 Interpretive Statements SINUS RHYTHM Electronically Signed On 03-13-2025 10:19:16 EDT by Dylon Adan MD us Trent Tyler MD IMG ECG ORDERABLES Final Result documented in this encounter Visit Diagnoses Diagnosis Atypical chest pain- Primary Other chest pain First trimester documented in this encounter Care Teams Vice President Quality Assurance Relationship Specialty Start Date End Date Neeru Samuels MD [address] [place] [address] PCP - General Internal Medicine 07/05/23 documented as of this encounter
--- OUTSIDE RECORDS SUMMARY | 2025-05-09 09:11 | XMS_ITS | Encounter Summary ---
Author Organization [place] [address] Care Team Providers Care Videotape Editor Name Role Phone Neeru Samuels MD Primary Care Provider [phone]- [phone] Encounter Details Date Type Department Care Team (Latest Contact Info) Description 05/09/2025 9:11 AM EDT - 05/09/2025 11:59 PM EDT Hospital Encounter [facility] [address] [place] [id number] Annual physical exam; Dysuria Discharge Disposition: Home or Self Care Social [...] on file documented as of this encounter Functional Status * Is the [...] 10/14/2023 6:51 PM Shagufta Sloan RN documented as of this encounter Mental Status * Because of a physical, mental or emotional condition, does this person have serious difficulty concentrating, remembering or making decisions? Answer Entry Date Author No 10/14/2023 6:51 PM Shagufta Sloan RN documented in this encounter Medications at Time of Discharge ibuprofen (ADVIL;MOTRIN) 600 mg Oral Tablet Take 1 Tablet by mouth every 6 hours. Take with food. 60 Tablet 10/22/2023 vit no.[id number] 27 mg iron- 800 mcg Oral Tablet Take 1 Tablet by mouth daily. sertraline (ZOLOFT) 25 mg Oral Tablet Take 25 mg by mouth daily. 10/29/2023 documented as of this encounter Discharge Disposition Disposition Code Departure Means Destination Home or Self Care documented in this encounter Plan of Treatment Upcoming Encounters Date Type Department Care Team (Late st Contact Info) Description 07/15/2025 10:30 AM EST Office Visit [facility] [address] [place] [address] Neeru Samuels MD [address] [place] [address] documented as of this encounter Goals Goal Patient Goal Type Associated Problems Recent Progress Patient-Stated? Author Blood Pressure < 140/90 Blood Pressure 144/73(2024 9:00 PM EDT) No Chely Amezcua LPN Maintain a healthy diet, exercise regularly and maintain an ideal body weight General No Zora Khan RMA documented as of this encounter Procedures Procedure Name Priority Date/Time Associated Diagnosis Comments URINALYSIS REFLEX Routine 05/09/2025 10: 17 AM EDT Dysuria UA W/REFLEX TO CULTURE Routine 05/09/2025 10:17 AM EDT Dysuria EXTRA SORENSON URINE CX Routine 05/09/2025 1 0:17 AM EDT Dysuria LIPID PANEL REFLEX Routine 05/09/2025 10 :17 AM EDT Annual physical exam URINE CULTURE (NO STAIN) Routine 05/09/2025 10:17 AM EDT Dysuria HEMOGLOBIN A1C Routine 05/09/2025 10:17 AM EDT Annual physical exam documented in this encounter Results * URINE CULTURE (NO STAIN) (05/09/2025 10:17 AM EDT) Pathologist [facility] Culture Multiple bacterial species isolated from urine consistent with urogenital commensal organisms. 05/11/2025 6:50 AM EDT [facility] Urine STRUCTURE OF URINARY TRACT PROPER / Unknown 05/09/2025 10:17 AM EDT 05/09/2025 12:31 PM EDT Neeru Samuels MD MICROBIOLOGY - GENERAL ORD ERABLES Final Result Performing Organization Address City/[facility]/ZIP Co de Phone Number [facility] [address] [place] [address] [address] [address] * EXTRA SORENSON URINE CX (05/09/2025 10:17 AM EDT) Urine STRUCTURE OF URINARY TRACT PROPER / Unknown 05/09/2025 10:17 AM EDT 05/09/2025 10:17 AM EDT Neeru Samuels MD MICROBIOLOGY - GENERAL ORD ERABLES Final Result [facility] [address] [place] [address] * (ABNORMAL) URINALYSIS REFLEX (05/09/2025 10:17 AM EDT) UA Color Yellow 05/09/2025 12:31 PM EDT [facility] UA Appear Cloudy(A) Clear 05/09/2025 12:31 PM EDT [facility] UA Glucose Negative Negative mg/dL 05/09/2025 12:31 PM EDT [facility] UA Ketones Negative Negative mg/dL 05/09/2025 12:31 PM EDT [facility] UA Blood Negative Negative 05/09/2025 12:31 PM EDT [facility] UA pH 6.5 5.0 - 8.0 pH 05/09/2025 12:31 PM EDT [facility] UA Protein Trace (10-20 mg/dL) Negative mg/dL 05/09/2025 12:31 PM EDT [facility] UA Urobilinogen 1+ (2-3 mg/dL)(A) <=1 mg/dL 05/09/2025 12:31 PM EDT [facility] UA Bili Negative Negative 05/09/2025 12:31 PM EDT [facility] UA Nitrite Negative Negative 05/09/2025 12:31 PM EDT [facility] UA Leuk Est 4+ (500 Jack/mcl)(A) Negative 05/09/2025 12:31 PM EDT [facility] UA Spec Grav 1.024 1.001 - 1.035 no units 05/09/2025 12:31 PM EDT [facility] Comment:Reference range teagan d for random specimens only. UA WBC 24(H) 0 - 4 /HPF 05/09/2025 12:31 PM EDT [facility] UA RBC 2 0 - 3 /HPF 05/09/2025 12:31 PM EDT [facility] UA Squam Epi 4+ /LPF 05/09/2025 12:31 PM EDT [facility] UA Mucus 1+ /LPF 05/09/2025 12:31 PM EDT [facility] Urine STRUCTURE OF URINARY TRACT PROPER / Unknown 05/09/2025 10:17 AM EDT 05/09/2025 10:17 AM EDT Neeru Samuels MD URINE ORDERABLES Final Res ult Performing Organization Address [facility]/ZIP Co de Phone Number [facility] [address] , [place] [address] * HEMOGLOBIN A1C (05/09/2025 10:17 AM EDT) Hgb A1C 5.2 4.2 - 5.6 % 05/09/2025 2:59 PM EDT [facility] Est. Avg Glucose 103 mg/dL 05/09/2025 2:59 PM EDT [email or web address] Blood VENOUS BLOOD / Unknown Venipuncture / Unknown 05/09/2025 10:17 AM EDT 05/09/2025 10:17 AM EDT Narrative [facility] - 05/09/2025 2:59 PM EDT REFERENCE RANGE: Normal: 4.0-5.6% Pre-diabetes: 5.7-6.4% Provisional diagnosis of diabetes: >6.4% Hgb F>10% and anything which shortens red cell survival, such as hemolytic anemia, or unstable hemoglobin variants such as HbSS, HbSC, or HbCC, will lower the HbA1c value associated with a given level of glycemic control. us Neeru Sameuls MD CHEMISTRY ORDERABLES Final Result Performing Organization Address [facility] de Phone Number [facility] [address] , [place] [address] * (ABNORMAL) LIPID PANEL REFLEX (05/09/2025 10:17 AM EDT) Cholesterol 294(H) <200 mg/dL 05/09/2025 1:00 PM EDT [facility] Comment: < 200 Desirable 200 - 239 Borderline High >= 240 High Triglyceride 171(H) <150 mg/dL 05/09/2025 1:00 PM EDT [facility] Comment: < 150 Normal 150 - 199 Borderline High 200 - 499 High >= 500 Very High HDL 43 >=40 mg/dL 05/09/2025 1:00 PM EDT [facility] Comment: > 60 Optimal 40 - 60 Acceptable < 40 Low LDL Calculated 218(H) <100 mg/dL 05/09/2025 1:00 PM EDT [facility] Comment: < 100 Optimal 100 - 129 Near or above optimal 130 - 159 Borderline High 160 - 189 High >= 190 Very High The National Institutes of Health (NIH) equation is used for all lipid panels that report calculated LDL (LDL-C). Non-HDL-C Calculated 251(H) <=129 mg/dL 05/09/2025 1:00 PM EDT [facility] Comment: <130 Desirable 130-159 Above Desirable 160-189 Borderline High 190-219 High >= 220 Very High Fasting Specimen? Yes None 025 1:00 PM EDT [facility] Blood VENOUS BLOOD / Unknown Venipuncture / Unknown 05/09/2025 10:17 AM EDT 05/09/2025 10:17 AM EDT Neeru Samuels MD CHEMISTRY ORDERABLES Final Result [facility] [address] [facility] , [place] [address] documented in this encounter Visit Diagnoses Diagnosis Annual physical exam Routine general medical examination at a health care facility Dysuria documented in this encounter Care Teams Videotape Editor Relationship Specialty Start Date End Date Neeru Samuels MD [address] [place] [address] PCP - General Internal Medicine 07/05/23 documented as of this encounter
[2025-05-12] VITALS (8 sets, daily range): BP systolic 123–163; BP diastolic 74–95; PULSE 90–114; RESP 15–18; TEMP 36.7–36.8; O2SAT 96–100; BMI 34.0
--- NOTE | 2025-05-12 18:22 | ED_ITS ---
<Statement entered by Blayne Vargas MD - 05/13/25 01:14> I was consulted by the ROSCOE, and we discussed the complexity of the problems being addressed. I approve the treatment and management plan for this patient's care in the emergency department, thus performing a substantive portion of the medical decision making. Blayne Vargas MD Discharge Plan Disposition Patient Disposition: Home, Self-Care Condition: Good Prescriptions Prescriptions: New cephalexin 250 mg capsule 250 mg PO Q6H 5 Days Qty: 20 0RF No Action Classic 28 mg iron- 800 mcg tablet PO DAILY sertraline 50 mg tablet 50 mg PO DAILY Qty: 30 0RF ondansetron 4 mg tablet,disintegrating 4 mg PO Q6H PRN (Reason: nausea and vomiting) Qty: 90 2RF aspirin [Adult Aspirin Regimen] 81 mg tablet,delayed release (DR/EC) 162 mg PO BID Qty: 60 5RF Referrals Follow up/Referrals: Mili Yoo DO [Staff Physician, [facility]INEER'S HELPER] - See instructions Carly Cedillo DO [Staff Physician, CHIEF ENGINEER'S HELPER] - See instructions Provider,Referral, [Primary Care Provider, Medical] - See instructions Activity Restrictions/Add. Instructions Additional Instructions/Restrictions: Please return to the emergency department with any worsening signs or symptoms. Please call your CHIEF ENGINEER'S HELPER office for follow-up in the upcoming days/weeks. Please take your antibiotic medication as prescribed. Clinical Impressions Clinical Impression: Pain of round ligament, Acute UTI Instructions Patient Instructions: DI for Urinary Tract Infection (UTI), DI for Round Ligament Pain Print Language Print Language: Japanese Discharge ED Provider: Blayne Vargas General Adult HPI General Chief complaint: PAIN Stated complaint: 16 wks preg both sides abd pain Time Seen by Provider: 05/12/25 18:21 Mode of Arrival: Ambulatory Source of Information: Patient Description of Symptoms (Recalled from ER Triage Doc. by RN): patient presents to the ED for pain in her sides bilaterally. patient stated she has no done any excessive tugging or pulling and this pain has been going on for 2 days now. History of Present Illness HPI narrative: 24-year-old female G2, , at approximately 16 weeks gestation presents emergency department with waxing waning abdominal pain and back pain that have been ongoing for 1 week, worsened today, after an episode of nausea and vomiting , which has been chronic for her during this uncomplicated thus far. Patient has any fever chills chest pain shortness of breath, denies any constipation diarrhea no urinary type symptomatology, no vaginal bleeding, has has vaginal discharge, but is somewhat chronic for her during this , patient did have preeclampsia with previous , once again uncomplicated thus far. Patient denies any alcohol tobacco or drug use, other past medical history is consistent with MDD/JEANNETTE. Initial triage vitals are unremarkable Please note that above description of symptoms, in this electronic medical record under categorization of recalled from ER triage doctor by RN are reflective of an initial nursing assessment, however, is not reflective of my full history and physical exam that was personally taken and clarified. Consequentially, this preceding description of symptoms, which may include the patient's categorized chief complaint in the EMR, do not reflect my personal clinical impression, and the ultimate description of history of present illness and patient stated complaints should be deferred to this section of the note. Unless stated otherwise or congruent with this section of the note, additional signs, symptoms, or incongruence should be interpreted as inaccurate with my clinical impression. Onset (ago): week(s) Related Data Home Medications ?Medication ?Instructions ?Recorded ?Confirmed vits no.126-ferrous fum tab PO DAILY 03/26/25 04/23/25 28 mg iron-folic acid 800 mcg tablet (Classic ) Previous Rx's ?Medication ?Instructions ?Recorded sertraline 50 mg tablet 50 mg PO DAILY #30 tabs 03/08 aspirin 81 mg tablet,delayed 162 mg (2 x 81 mg) PO BID #60 tabs 04/23/25 release (Adult Aspirin Regimen) ondansetron 4 mg disintegrating 4 mg PO Q6H PRN nausea and 04/23/25 tablet vomiting #90 tabs cephalexin 250 mg capsule 250 mg PO Q6H 5 days #20 cap s 05/12/25 Allergies Allergy/AdvReac Type Severity Reaction Status Date / Time promethazine (From Phenergan) Allergy Mild Hallucinati Verified 04/23/25 14:41 ng [facility] Disclaimer: The information contained in this section may have been updated after the patient was seen, as this information can be updated by other users. Medical History (Updated 05/12/25 @ 20:39 by SATNAM Jewell) History of pre-eclampsia in prior , currently Headache Breast feeding status of mother Anemia Surgical History History of tonsillectomy Family History Mother Thyroid disorder Father Cancer colon Social History Smoking Status: Never smoker alcohol intake: never current occupational status: employed and other Travel in the last 8 weeks?: None Have you lived/traveled outside [place] in past 30 days?: No Contact w/someone who lives/traveled outside US past 30 days?: No Exposure to someone with infectious disease in past 14 days?: No Do you have a fever (greater than 100.4 F or 38 C)?: No Have you tested positive for COVID-19?: No Exposed to someone with COVID-19 in past 14 days?: No Do you have a sore throat?: No Do you have a cough?: No Do you have any weakness?: No Do you have any diarrhea?: No Are you experiencing any unusual bleeding?: No Do you have any muscle aches/pain?: No Do you have any abdominal pain?: No Are you experiencing loss of taste or smell?: No Other Medical History Have you received the Flu Vaccine for this season: No Have you received the Pneumonia Vaccine: No ROS Obtained: Yes All systems reviewed & no additional complaints except as documented Physical Exam General General appearance: alert and in no apparent distress Head Head exam: atraumatic and normocephalic Eye Eye exam: Present PERRL and EOMI ENT ENT exam: Present mucous membranes moist Neck Neck exam: Present normal inspection Chest Chest inspection: Present normal inspection and symmetric chest wall rise Respiratory Respiratory exam: Present normal lung sounds bilaterally; Absent respiratory distress Cardiovascular Cardiovascular exam: Present regular rate and normal rhythm Abdominal Exam Abdominal exam: Present soft and rebound; Absent tenderness or guarding Comment: No real tenderness to palpation, obviously abdomen Extremities Exam Extremities exam: Present normal inspection Neurological Exam Neurological exam: Present alert and oriented X3 Psychiatric Psychiatric exam: Present normal affect Skin Skin exam: Present warm and dry Medical Decision Making Medical Records Medical records reviewed: Yes I reviewed the patient's medical records. Screening: Per USPSTF and CDC recommendations, given the prevalence of disease in our region, it is our hospital?s policy to screen for HIV and viral Hepatitis for all patients aged 18 and over and those with ongoing risk factors. Miguelito Inquiry Pt receiving controlled substance: No Miguelito was queried for this patient: No Vital Signs: 05/12/25 18:05 05/12/25 18:19 05/12/25 18:27 Temperature 98.2 F Temperature Source Oral Pulse Rate 114 H 113 H Pulse Rate [Right Radial] 105 H Respiratory Rate 15 18 Blood Pressure 135/81 163/88 H Blood Pressure [Right Arm] 149/95 H Blood Pressure Mean Blood Pressure Mean [Right Arm] 113 Blood Pressure Source Automatic Cuff Blood Pressure Source [Right Arm] Automatic Cuff Blood Pressure Position Sitting Blood Pressure Position [Right Arm] Sitting 02 Sat by Pulse Oximetry 100 99 99 Oxygen Delivery Method Room Air Room Air 05/12/25 18:29 05/12/25 19:03 05/12/25 19:30 Temperature Temperature Source Pulse Rate 105 H 94 H Pulse Rate [Right Radial] Respiratory Rate Blood Pressure 135/81 124/81 123/79 Blood Pressure [Right Arm] Blood Pressure Mean 99 89 89 Blood Pressure Mean [Right Arm] Blood Pressure Source Blood Pressure Source [Right Arm] Blood Pressure Position Blood Pressure Position [Right Arm] 02 Sat by Pulse Oximetry 96 98 Oxygen Delivery Method 05/12/25 20:00 Temperature Temperature Source Pulse Rate 95 H Pulse Rate [Right Radial] Respiratory Rate Blood Pressure 140/74 Blood Pressure [Right Arm] Blood Pressure Mean 90 Blood Pressure Mean [Right Arm] Blood Pressure Source Blood Pressure Source [Right Arm] Blood Pressure Position Blood Pressure Position [Right Arm] 02 Sat by Pulse Oximetry 99 Oxygen Delivery Method Lab Data Lab results reviewed: Yes I reviewed the patient's lab results. Lab Results 05/12/25 18:22: Urine Color Yellow, Urine Appearance Clear, Urine pH 6.0, Ur Specific Pyrites 1.025, Urine Protein Negative, Urine Glucose (UA) Negative, Urine Ketones 1+, Urine Blood Negative, Urine Nitrate Negative, Urine Bilirubin Negative, Urine Urobilinogen 0.2, Ur Leukocyte Esterase 1+ A, Urine RBC None, Urine WBC 10-20, Ur Squamous Epith Cells 10-20, Urine Bacteria 2+ 05/12/25 19:03: WBC 9.3, RBC 4.45, Hgb 12.7, Hct 38.0, MCV 85.4, MCH 28.5, MCHC 33.4, RDW 15.1, Plt Count 278, MPV 10.3, Neut % (Auto) 82.4 H, Lymph % (Auto) 12.4, [place] % (Auto) 4.6, Eos % (Auto) 0.2, Baso % (Auto) 0.1, Neut # (Auto) 7.6, Lymph # (Auto) 1.2, [place] # (Auto) 0.4, Eos # (Auto) 0.0, Baso # (Auto) 0.0, S odium 135 L, Potassium 3.8, Chloride 100, Carbon Dioxide 23, Anion Gap 15.8 H, B UN 4 L, Creatinine 0.60, Estimated Creat Clear 227, Estimated GFR 124, Est GFR ( Amer) 150, Glucose 80, Lactate 0.6 L, Calcium 8.9, Total Bilirubin 0.7, AST 21, ALT 27, Alkaline Phosphatase 85, Total Protein 7.0, Albumin 4.0, Globulin 3.0, Albumin/Globulin Ratio 1.3, Lipase 14 L, HCG, Quant [id number] H 05/12/25 19:03 05/12/25 19:03 Orders (Tests/Meds): ORDERS Category Date Time Status POCUS Point of Care (ER Only) Stat Exams 05/12/25 18:27 Taken Complete Blood Count Auto Diff Stat Lab 05/12/25 19:03 Completed Comprehensive Metabolic Panel Stat Lab 05/12/25 19:03 Completed HCG,Quantitative Stat Lab 05/12/25 19:03 Completed Lactic Acid Stat Lab 05/12/25 19:03 Completed Lipase Stat Lab 05/12/25 19:03 Completed UA [Urinalysis and Microscopic] Stat Lab 05/12/25 18:22 Completed Urine Culture Stat Micro 05/12/25 18:22 Received Medical Decision Narrative: 24-year-old G2, at approximately 16 weeks gestation female presents emerged from with abdominal pain/back pain for 1 week waxing and waning, differential diagnose clued but not limited to, round ligament pain, ectopic , acute UTI, acute pyelonephritis, other musculoskeletal pain among others. I discussed this patient case with the attending physician Dr. Gilbert saw and examined the patient as well. Will obtain basic laboratory studies, hCG quant, lactic acid level, lipase level, UA and POCUS bedside ultrasound. Limited OB ultrasound Indication: -Back pain Identified structures: [-Uterus -Left adnexa -Right adnexa -Pouch of [place]] Findings: Uterus: [Definitive IUP] FHR: [158] Right adnexa: [-Normal] Left adnexa: [-Normal] Cul de sac: [-free fluid absent] Impression: -IUP: [present] - heart rate: [158] -Ectopic : [absent] -Free fluid: [absent] Images [were saved] to permanent archive The study [was] technically adequate [facility] Transabdominal: [id number] This study was performed by me, and I personally interpreted all images/videos. Based on my clinical judgement, these images were [adequate/inadequate] and [did/did not] necessitate further imaging. UA is notable for 1+ ketonuria, negative hematuria, negative nitrites, 1+ leukocyte esterase. No lactic acidosis, lipase in normal limits, otherwise unremarkable CMP. Microscopic analysis is notable for 10-20 WBCs 10-20 squamous epithelial cells and 2+ bacteria. CBC unremarkable hCG quant is 41,009 I discussed the results with the patient the bedside, patient is in agreement with current treatment plan/discharge plan, will treat the patient prophylactically for a similar bacteria/early cystitis, will treat with Keflex 250 mg p.o. 4 times daily for 5 days. Strict ED return precaution given. Patient will follow-up with her [facility]IEF ENGINEER'S HELPER in the upcoming days/weeks. Critical Care Critical Care Time Critical Care Time: No
[2025-05-12 18:27] LABS: Microscopic, Urine URINE MICROSCOPIC (MICROSCOPIC)
[2025-05-12 18:41] LABS: Bilirubin,Urine Negative (Negative); Color,Urine YELLOW (Yellow); Glucose,Urine (UA) Negative (Negative); Ketones,Urine 1+ (Negative); Leukocyte Esterase,Urine 1+ (Negative); PH,Urine 6.0 (5.0-8.5); Protein,Urine Negative (Negative); Specific Gravity, Urine 1.025 (1.005-1.030); Urobilinogen,Urine 0.2 EU/dl (0.2)
--- NOTE | 2025-05-12 19:02 | PC.NURSE ---
Report taken from Susan ALMONTE, care assumed. Pt did not verbalize any additional needs when hourly assesment was complete.
[2025-05-12 19:26] LABS: Alanine Aminotransferase 27 U/L (12-78); Albumin Level 4.0 g/dl (3.5-5.0); Albumin/Globulin Ratio 1.3 (1.1-1.8); Alkaline Phosphatase 85 U/L (38-126); Anion Gap 15.8 mEq/L (5-15); Aspartate Amino Transferase 21 U/L (14-36); Bilirubin,Total 0.7 mg/dl (0.2-1.3); Blood Urea Nitrogen 4 mg/dl (7-17); Calcium 8.9 mg/dl (8.4-10.2); Carbon Dioxide 23 mmol/L (22.0-30.0); Chloride 100 mmol/L (98-107); Creatinine Clearance Estimated 227 mL/min (50-200); Creatinine,Serum 0.60 mg/dl (0.52-1.04); Estimated Glomerular Filt Rate 124 ml/min (>60); GFR (African American) 150 ML/MIN (>60); Globulin 3.0 g/dL (1.3-3.2); Glucose 80 mg/dl (74-100); Lipase 14 U/L (23-300); Potassium 3.8 mmoL/L (3.5-5.1); Sodium 135 mmol/L (136-145); Total Protein,Serum 7.0 g/dl (6.3-8.2)
[2025-05-12 19:46] LABS: Hematocrit 38.0 % (37.0-47.0); Hemoglobin 12.7 g/dL (12.2-16.2); Immature Granulocytes % 0.3 %; Mean Corpuscular HGB Conc 33.4 g/dL (31.8-35.4); Mean Corpuscular Hemoglobin 28.5 pg (27.0-31.2); Mean Corpuscular Volume 85.4 fl (81-99); Nucleated Red Blood Cells % 0 %; Platelet Count 278 K/mm3 (142-424); Red Blood Count 4.45 M/mm3 (4.20-5.40); Red Cell Distribution Width-SD 46.8 fL; White Blood Count 9.3 K/mm3 (4.8-10.8)
[2025-05-12 20:17] LABS: Bacteria,Urine 2+ /lpf
== END 2025-05-12 20:51 | disposition home or self-care (01) ==
PROVIDERS: Physician Assistant; Emergency Provider Student in an Organized Health Care Education/Training Program
DX: O23.42 Unspecified infection of urinary tract in pregnancy, second trimester (principal); N39.0 Urinary tract infection, site not specified; R10.23 Pelvic and perineal pain bilateral; Z3A.16 16 weeks gestation of pregnancy
CPT/HCPCS: 80053; 81001; 83605; 83690; 84702; 85025; 87086; 99284

== ENCOUNTER 2025-06-05 13:47 | Outpatient (CLI) | payer BC, SELFPAY ==
--- OUTSIDE RECORDS SUMMARY | 2025-05-09 09:11 | XMS_ITS | Encounter Summary ---
Author Organization [place] [address] Care Team Providers Care Territory Account Executive Name Role Phone Neeru Samuels MD Primary Care Provider +1- [phone] Encounter Details Date Type Department Care Team (Latest Contact Info) Description 05/09/2025 9:11 AM EDT - 05/09/2025 11:59 PM EDT Hospital Encounter [facility] [address] [place] [id number] Annual physical exam; Dysuria Discharge Disposition: Home [...] Take with food. 60 Tablet 10/22/2023 vit no.[id number] 27 mg iron- 800 mcg Oral Tablet [...] Description 07/15/2025 10:30 AM EST Office Visit [facility] [address] [place] [address] Neeru Samuels MD [address] [place] [address] documented as of this encounter Goals Goal [...] CULTURE (NO STAIN) (05/09/2025 10:17 AM EDT) Culture Multiple bacterial species isolated from urine consistent with urogenital commensal organisms. 05/11/2025 6:50 AM EDT [facility] [employer] Urine STRUCTURE OF URINARY TRACT PROPER / Unknown 05/09/2025 10:17 AM EDT 05/09/2025 12:31 PM EDT us Neeru Samuels MD MICROBIOLOGY - GENERAL ORD ERABLES Final Result Performing Organization Address [facility]/ZIP Co de Phone Number [facility] [address] [facility], [place] [address] * EXTRA SORENSON URINE CX (05/09/2025 10:17 AM EDT) Urine STRUCTURE OF URINARY TRACT PROPER / Unknown 05/09/2025 10:17 AM EDT 05/09/2025 10:17 AM EDT us Neeru Samuels MD MICROBIOLOGY - GENERAL ORD ERABLES Final Result [facility] [address] [place] [address] * (ABNORMAL) URINALYSIS REFLEX (05/09/2025 10:17 AM [...] ORDERABLES Final Res ult Performing Organization Address [facility] Co de Phone Number [facility] [employer] [address] , [place] [address] * HEMOGLOBIN A1C (05/09/2025 10:17 AM EDT) Hgb A1C 5.2 4.2 - 5.6 % 05/09/2025 2:59 PM EDT [facility] [employer] [facility] Est. Avg Glucose 103 mg/dL 05/09/2025 2:59 PM EDT [facility] [employer] [facility] Blood VENOUS BLOOD / Unknown Venipuncture / Unknown 05/09/2025 10:17 AM EDT 05/09/2025 10:17 AM EDT Narrative [facility] [employer] [facility] - 05/09/2025 2:59 PM EDT REFERENCE RANGE: Normal: 4.0-5.6% Pre-diabetes: 5.7-6.4% Provisional diagnosis of diabetes: >6.4% Hgb F>10% and anything which shortens red cell survival, such as hemolytic anemia, or unstable hemoglobin variants such as HbSS, HbSC, or HbCC, will lower the HbA1c value associated with a given level of glycemic control. us Neeru Samuels MD CHEMISTRY ORDERABLES Final Result Performing Organization Address [facility] de Phone Number [facility] [employer] [address] , [place] [address] * (ABNORMAL) LIPID PANEL REFLEX (05/09/2025 10:17 AM EDT) Cholesterol 294(H) <200 mg/dL 05/09/2025 1:00 PM EDT [facility] Comment: < 200 Desirable 200 - 239 Borderline High >= 240 High Triglyceride 171(H) <150 mg/dL 05/09/2025 1:00 PM EDT [facility] [employer] Comment: < 150 Normal 150 - 199 Borderline High 200 - 499 High >= 500 Very High HDL 43 >=40 mg/dL 05/09/2025 1:00 PM EDT [facility] Comment: > 60 Optimal 40 - 60 Acceptable < 40 Low LDL Calculated 218(H) <100 mg/dL 05/09/2025 1:00 PM EDT [facility] Comment: < 100 Optimal 100 - 129 Near or above optimal 130 - 159 Borderline High 160 - 189 High >= 190 Very High The National Institutes of Health (NIH) equation is used for all lipid panels that report calculated LDL (LDL-C). Non-HDL-C Calculated 251(H) <=129 mg/dL 05/09/2025 1:00 PM EDT [facility] Comment: <130 Desirable 130-159 Above Desirable 160-189 Borderline High 190-219 High >= 220 Very High Fasting Specimen? Yes None 025 1:00 PM EDT [facility] Blood VENOUS BLOOD / Unknown Venipuncture / Unknown 05/09/2025 10:17 AM EDT 05/09/2025 10:17 AM EDT Neeru Samuels MD CHEMISTRY ORDERABLES Final Result [facility] [employer] [address] [facility] , [address] [place] [phone] documented in this encounter Visit Diagnoses Diagnosis Annual physical exam Routine general medical examination at a health care facility Dysuria documented in this encounter Care Teams Territory Account Executive Relationship Specialty Start Date End Date Neeru Samuels MD [address] [place] [address] PCP - General Internal Medicine 07/05/23 documented as of this encounter
--- NOTE | 2025-06-05 13:45 | US_ITS ---
PROCEDURE: US OB /MATERNAL DETAIL CLINICAL INDICATION: schedule 20 wk anatomy scan in 2wks COMPARISON: No exams were available for comparison FINDINGS: Transabdominal sonographic images of the pelvis were obtained. From her established due date she is 20 weeks 0 days. Single viable intrauterine gestation. Cephalic position. Placenta: Anteriorplacenta grade 1. There is an average amount of fluid. The cervix appears satisfactory. Closed and measuring 4.87 cm in length. Complete survey performed and was unremarkable on the submitted images as in PACS. No discrete anomalies identified on survey imaging by technologist. Active fetus. Three-vessel cord with satisfactory umbilical cord insertion. 4- chamber heart noted. Situs, aortic arch, LVOT, RVOT, three-vessel view appear normal. Survey of brain & ventricles Unremarkable. Cerebellum, thalamus, choroid plexus, cisterna magna appear normal. Face and neck survey unremarkable. Profile, nasion, lips and nose appeared normal. Diaphragm and chest views unremarkable. Abdomen: Both kidneys noted and unremarkable. Stomach and bladder noted and satisfactory. Spine: Survey of the spine satisfactory with no anomalies identified nor imaged. Cervical, thoracic, lower spine appear normal. Both arms and legs noted. Amniotic Fluid: Adequate. MVP 6.79 cm Measurements: Average ultrasound age 19weeks 5days. Estimated due date by ultrasound age 0310/25/2025. Estimated weight 320g BPD = 19weeks 4days HC = 19weeks 0 days AC = 20weeks 3days FL = 19weeks 6days Growth Percentile= 40 Heart Rate = 143bpm Cerebellum = 18weeks 2days Humerus = 20weeks 2days HC/AC is 1.07 FL/BPD is 0.7 FL/AC is 0.21 IMPRESSION: 1. Viable fetus in the cephalic presentation with an anterior placenta grade 1. 2. The fluid is within normal limits with an MVP 6.79 cm. 3. Anatomical scan appears normal. 4. biometry is consistent with the dates. Dictated by: Mc Barnett MD 06/06/2025 08:34 Mc Barnett MD in OV 06/06/2025 08:34
--- OUTSIDE RECORDS SUMMARY | 2025-06-05 13:59 | XMS_ITS | Encounter Summary ---
Author Organization [place] [address] Care Team Providers Care Tie Binder Name Role Phone Neeru Samuels MD Primary Care Provider [phone] Encounter Details Date Type Department Care Team (Late st Contact Info) Description 05/19/2025 Results Follow-Up [facility] [address] [place] [address] Neeru Samuels MD [address] [place] [address] LIPID PANEL REFLEX, HEMOGLOBIN A1C, URINALYSIS REFLEX, Additional followed-up results: 2 Social History Tobacco Use Types Packs/Day Years [...] Shagufta Sloan RN documented in this encounter Plan of Treatment Upcoming Encounters Date Type Department Care Team (Late st Contact Info) Description 07/15/2025 10:30 AM EST Office Visit [facility] [address] [place] [id number] Neeru Samuels MD [address] [place] [address] Scheduled Orders Name Type Priority Associated Diagnoses Orde r Schedule LIPID PANEL REFLEX Lab Routine Dyslipidemia 1 Occurrences starting 05/22/2025 until 05/22/2026 documented as of this encounter Goals Goal Patient Goal Type Associated Problems Recent Progress Patient-Stated? Author Blood Pressure < 140/90 Blood Pressure 144/73(2024 9:00 PM EDT) No Chely Amezcua LPN Maintain a healthy diet, exercise regularly and maintain an ideal body weight General No Zora Khan, DIANNE documented as of this encounter Visit Diagnoses Diagnosis Dyslipidemia- Primary Other and unspecified hyperlipidemia documented in this encounter Care Teams Tie Binder Relationship Specialty Start Date End Date Neeru Samuels MD [address] [place] [address] PCP - General Internal Medicine 07/05/23 documented as of this encounter
--- OUTSIDE RECORDS SUMMARY | 2025-06-05 13:59 | XMS_ITS | Clinical Summary ---
Author Organization [facility] Address [address] [address] Phone Care Team Providers Care Farm Contractor Buyer Name Role Phone Neeru Samuels MD Primary Care Provider [phone] Allergies Active Allergy Reactions Criticality Noted Date Comments Adhesive Rash Low 10/20/2023 Promethazine Other (See Comments) Medium Childhood reaction Medications vit no.[id number] c 27 mg iron- 800 mcg Oral [...] Encounters Date Type Department Care Team Description 05/19/2025 Results Follow-Up SEP [facility] [address] [place] [address] Neeru Samuels MD LIPID PANEL REFLEX, HEMOGLOBIN A1C, URINALYSIS REFLEX, Additional followed-up results: 2 05/09/2025 9:11 AM EDT - 05/09/2025 11:59 PM EDT Hospital Encounter [facility] [address] [place] [address] Annual physical exam; Dysuria Discharge Disposition: Home or Self Care 03/12/2025 5:46 PM EDT - 03/12/2025 9:[address] [facility] [place] [address] Trent Tyler MD Atypical chest pain (Primary [...] DO Complications:Gestational hy pertension, third trimester Delivery Location:[facility] ([facility]) Last Filed Vital Signs Vital [...] Description 07/15/2025 10:30 AM EST Office Visit [facility] [address] [facility] [place] [address] Neeru Samuels MD [address] [place] [address] Health Maintenance Due Date Last Done [...] Blood Pressure 144/73(2024 9:00 PM EDT) No Goldie, Chely M, [employer] ARCHITECT Maintain a healthy diet, exercise regularly and maintain an ideal body weight General No Zora Khan, RMA Procedures Procedure Name Priority Date/Time Associated Diagnosis Comments URINALYSIS REFLEX Routine 05/09/2025 10: 17 AM EDT Dysuria UA W/REFLEX TO CULTURE Routine 10:17 AM EDT Dysuria HEMOGLOBIN A1C Routine 05/09/2025 10:17 AM EDT Annual physical exam LIPID PANEL REFLEX Routine 05/09/2025 10 :17 AM EDT Annual physical exam URINE CULTURE (NO STAIN) Routine 05/09/2025 10:17 AM EDT Dysuria EXTRA SORENSON URINE CX Routine 05/09/2025 1 0:17 AM EDT Dysuria D-DIMER STAT 03/12/2025 8:25 PM EDT HEPATITIS [...] supervision of other normal in first trimester MANAGER OF HEALTH CYTOLOGY REQUEST (PAP ONLY) Routine 04/19/2023 10:30 AM EDT Encounter for supervision of other normal in first trimester from Last 3 Months or Most Recently Relevant to Health Maintenance Results * (ABNORMAL) URINALYSIS REFLEX (05/09/2025 10:17 AM [...] 05/09/2025 12:31 PM EDT [facility] Urine STRUCTURE OF URINARY TRACT PROPER / Unknown 05/09/2025 10:17 AM EDT 05/09/2025 10:17 AM EDT us Neeru Samuels MD URINE ORDERABLES Final Res ult Performing Organization Address City/[facility]/ZIP Co de Phone Number [facility] [address] [facility], [place] [address] * EXTRA SORENSON URINE CX (05/09/2025 10:17 AM EDT) Urine STRUCTURE OF URINARY TRACT PROPER / Unknown 05/09/2025 10:17 AM EDT 05/09/2025 10:17 AM EDT us Neeru Samuels MD MICROBIOLOGY - GENERAL ORD ERABLES Final Result Performing Organization Address [facility]/[place] [address] * (ABNORMAL) LIPID PANEL REFLEX (05/09/2025 10:17 AM EDT) Cholesterol 294(H) <200 mg/dL 05/09/2025 1:00 PM EDT [facility] Comment: < 200 Desirable 200 - 239 Borderline High >= 240 High Triglyceride 171(H) <150 mg/dL 05/09/2025 1:00 PM EDT [facility] Comment: < 150 Normal 150 - 199 Borderline High 200 - 499 High >= 500 Very High HDL 43 >=40 mg/dL 05/09/2025 1:00 PM EDT [facility] Comment: > 60 Optimal 40 - 60 Acceptable < 40 Low LDL Calculated 218(H) <100 mg/dL 05/09/2025 1:00 PM EDT [employer] Comment: < 100 Optimal 100 - 129 Near or above optimal 130 - 159 Borderline High 160 - 189 High >= 190 Very High The National Institutes of Health (NIH) equation is used for all lipid panels that report calculated LDL (LDL-C). Non-HDL-C Calculated 251(H) <=129 mg/dL 05/09/2025 1:00 PM EDT [facility] Comment: <130 Desirable 130-159 Above Desirable 160-189 Borderline High 190-219 High >= 220 Very High Fasting Specimen? Yes None 025 1:00 PM EDT [facility] Blood VENOUS BLOOD / Unknown Venipuncture / Unknown 05/09/2025 10:17 AM EDT 05/09/2025 10:17 AM EDT us Neeru Samuels MD CHEMISTRY ORDERABLES Final Result Performing Organization Address City/[facility]/ZIP Co de Phone Number [facility] [employer] [address] , [place] [address] * URINE CULTURE (NO STAIN) (05/09/2025 10:17 AM EDT) Pathologist [facility] Culture Multiple bacterial species isolated from urine consistent with urogenital commensal organisms. 05/11/2025 6:50 AM EDT [employer] Urine STRUCTURE OF URINARY TRACT PROPER / Unknown 05/09/2025 10:17 AM EDT 05/09/2025 12:31 PM EDT us Neeru Samuels MD MICROBIOLOGY - GENERAL ORD ERABLES Final Result Performing Organization Address City/[facility]/ZIP Co de Phone Number [facility] [employer] [facility] [address] [facility] , [place] [address] * HEMOGLOBIN A1C (05/09/2025 10:17 AM EDT) Pathologist [facility] Hgb A1C 5.2 4.2 - 5.6 % 05/09/2025 2:59 PM EDT [facility] [employer] [facility] Est. Avg Glucose 103 mg/dL 05/09/2025 2:59 PM EDT [facility] [employer] [facility] Blood VENOUS BLOOD / Unknown Venipuncture / Unknown 05/09/2025 10:17 AM EDT 05/09/2025 10:17 AM EDT Narrative [facility] [employer] [facility] - 05/09/2025 2:59 PM EDT REFERENCE RANGE: Normal: 4.0-5.6% Pre-diabetes: 5.7-6.4% Provisional diagnosis of diabetes: >6.4% Hgb F>10% and anything which shortens red cell survival, such as hemolytic anemia, or unstable hemoglobin variants such as HbSS, HbSC, or HbCC, will lower the HbA1c value associated with a given level of glycemic control. Neeru Samuels MD CHEMISTRY ORDERABLES Final Result Performing Organization Address City/[facility]/ZIP Co de Phone Number [facility] [address] [facility] , [place] [address] * (ABNORMAL) D-DIMER (03/12/2025 8:25 PM EDT) D-Dimer 633(H) <=500 ng/mL FEU 03/12/2025 8:44 PM EDT [facility] Comment:This is an automated latex enhanced immunoassay [...] 8:25 PM EDT 03/12/2025 8:33 PM EDT us Umang Gomez APRN HEMATOLOGY ORDERABLES Fi nal Result [facility] [address] , [address] [place] [phone] * HIV AG/AB (03/12/2025 7:35 PM EDT) [facility] HIV Ag/AB Non-Reacti ve Non-Reacti ve 03/12/2025 8:44 PM EDT [facility] [employer] [facility] Comment:Negative for HIV-1 a ntigen and anti-HIV-1/anti-HIV-2 antibodies. Blood VENOUS BLOOD / Unknown Venipuncture / Unknown 03/12/2025 7:35 PM EDT 03/12/2025 7:42 PM EDT Narrative [facility] [employer] [facility] - 03/12/2025 8:44 PM EDT Test performed using [employer] electrochemiluminescence immunassay (ECLIA). Umang Gomez APRN IMMUNOLOGY ORDERABLES Fi nal Result Performing Organization Address [facility] de Phone Number [facility] [employer] [address] , [address] [place] [phone] * TROPONIN-T HIGH SENSITIVITY BASELINE W/ REFLEX (03/12/2025 7:35 PM EDT) [facility] ek-yHjlkicvd-Q <6 <14 ng/L 03/12/2025 8:14 PM EDT [facility] Blood VENOUS BLOOD / Unknown Venipuncture / Unknown 03/12/2025 7:35 PM EDT 03/12/2025 7:41 PM EDT Narrative [facility] - 03/12/2025 8:14 PM EDT Ingestion of haley doses of biotin (>5 mg/day) taken within 8 hours of drawing blood sample can interfere with this immunoassay test. Umang Gomez APRN CHEMISTRY ORDERABLES Fin al Result Performing Organization Address [facility] Co de Phone Number [address] [address] * HCV ANTIBODY SCREEN W/ REFLEX (03/12/2025 7:35 PM EDT) Pathologist [facility] Hep C Ab Non-Reacti ve Non-React emilia 03/12/2025 8:33 PM EDT [facility] [employer] [facility] Comment:No antibodies to HCV detected. Does not exclude possibility of exposure to HCV. Blood VENOUS BLOOD / Unknown Venipuncture / Unknown 03/12/2025 7:35 PM EDT 03/12/2025 7:42 PM EDT Narrative [facility] - 03/12/2025 8:33 PM EDT Test performed using [employer] Ele[employer]ys electrochemiluminescence immunassay (ECLIA). Umang Gomez APRN HEMATOLOGY ORDERABLES Fi nal Result Performing Organization Address [facility] de Phone Number [facility] [employer] , [place] [address] * HEPATITIS B SURFACE ANTIGEN (03/12/2025 7:35 PM EDT) [facility] Hep Bs Ag Non-Reacti ve Non-React emilia 03/12/2025 8:44 PM EDT [facility] [employer] [facility] Comment:HBsAg not detected. Does not exclude possibility of exposure to HBV. Blood VENOUS BLOOD / Unknown Venipuncture / Unknown 03/12/2025 7:35 PM EDT 03/12/2025 7:42 PM EDT [facility] - 03/12/2025 8:44 PM EDT Test performed using Cam[employer] Elecsys electrochemiluminescence immunassay (ECLIA). Umagn Gomez APRN CHEMISTRY ORDERABLES Fin al Result Performing Organization Address [facility] de Phone Number [facility] [employer] , [place] [address] * (ABNORMAL) CBC WITH DIFF (03/12/2025 7:35 PM EDT) [facility] WBC 10.5(H) 3.7 - 10.3 x10(3)/mcL 03/12/2025 7:45 PM EDT [facility] RBC 4.78 3.90 - 5.20 x10(6)/mcL 03/12/2025 7:45 PM EDT [facility] Hgb 12.9 11.2 - 15.7 g/dL 03/12/2025 7:45 PM EDT [facility] Hct 39.9 34.0 - 45.0 % 03/12/2025 7:45 PM EDT [facility] MCV 83.5 80.0 - 100.0 fL 03/12/2025 7:45 PM EDT [facility] MCH 27.0 26.0 - 34.0 pg 03/12/2025 7:45 PM EDT [facility] MCHC 32.3 30.7 - 35.5 g/dL 03/12/2025 7:45 PM EDT [facility] RDW 15.7(H) <=14.9 % 03/12/2025 7:45 PM EDT [facility] Platelet 304 155 - 369 x10(3)/mcL 03/12/2025 7:45 PM EDT [facility] MPV 9.5 8.8 - 12.5 fL 03/12/2025 7:45 PM EDT [facility] Neut Percent 73.6 % 03/12/2025 7:45 PM EDT [facility] Comment:Neutrophils equals s egs plus bands Imm Gran% 0.2 % 03/12/2025 7:45 PM EDT [facility] Comment:Automated count of m etamyelocytes, myelocytes and promyelocytes. Lymph Percent 18.6 % 03/12/2025 7:45 PM EDT [facility] [place] Percent 6.6 % 03/12/2025 7:45 PM EDT [facility] Eos Percent 0.8 % 03/12/2025 7:45 PM EDT [facility] Baso Percent 0.2 % 03/12/2025 7:45 PM EDT [facility] Neut # 7.8(H) 1.6 - 6.1 x10(3)/mcL 03/12/2025 7:45 PM EDT [facility] Comment:Neutrophils equals s egs plus bands IMMGRAN# 0.0 0.0 - 0.1 x10(3)/mcL 03/12/2025 7:45 PM EDT [facility] Comment:Automated count of m etamyelocytes, myelocytes and promyelocytes. An absolute IG <0.1 is reported as 0.0. Lymph # 2.0 1.2 - 3.9 x10(3)/mcL 03/12/2025 7:45 PM EDT [facility] [place] # 0.7 0.3 - 0.9 x10(3)/mcL 03/12/2025 7:45 PM EDT [facility] Eos# 0.1 0.0 - 0.5 x10(3)/mcL 03/12/2025 7:45 PM EDT [facility] Baso # 0.0 0.0 - 0.1 x10(3)/[facility] 03/12/2025 7:45 PM EDT [facility] Blood VENOUS BLOOD / Unknown Venipuncture / Unknown 03/12/2025 7:35 PM EDT 03/12/2025 7:41 PM EDT us Umang Gomez TOBACCO SHAKER HEMATOLOGY ORDERABLES Fi nal Result [place] [id number] * (ABNORMAL) HUMAN CHORIONIC GONADOTROPIN QUANTITATIVE (03/12/2025 7:35 PM EDT) [facility] Signature Hcg Quant 47,942(H) <5 mIU/mL 03/12/2025 8:14 PM EDT [facility] Blood VENOUS BLOOD / Unknown Venipuncture / Unknown 03/12/2025 7:35 PM EDT 03/12/2025 7:41 PM EDT Narrative [facility] - 03/12/2025 8:14 PM EDT Female [...] ORDERABLES Fin al Result Performing Organization Address [facility] Co de Phone Number [facility] [address] [place] [address] * (ABNORMAL) LIPASE LEVEL (03/12/2025 7:35 PM EDT) Pathologist [facility] Lipase Lvl 12(L) 13 - 60 U/L 03/12/2025 8:14 PM EDT [facility] Blood VENOUS BLOOD / Unknown Venipuncture / Unknown 03/12/2025 7:35 PM EDT 03/12/2025 7:41 PM EDT Umang Gomez APRN CHEMISTRY ORDERABLES Fin al Result Performing Organization Address [facility] de Phone Number [facility] [address] [place] [address] * (ABNORMAL) COMPREHENSIVE METABOLIC PANEL (03/12/2025 7:35 PM EDT) Pathologist [facility] Sodium 134(L) 136 - 145 mmol/L 03/12/2025 8:14 PM EDT [facility] Potassium 3.6 3.5 - 5.0 mmol/L 03/12/2025 8:14 PM EDT [facility] Chloride 97(L) 98 - 107 mmol/L 03/12/2025 8:14 PM EDT [facility] Total CO2 22 22 - 29 mmol/L 03/12/2025 8:14 PM EDT [facility] Anion Gap 15 7 - 16 mmol/L 03/12/2025 8:14 PM EDT [facility] Calcium 9.3 8.6 - 10.4 mg/dL 03/12/2025 8:14 PM EDT [facility] Glucose Lvl 88 70 - 99 mg/dL 03/12/2025 8:14 PM EDT [facility] BUN 6 6 - 20 mg/dL 03/12/2025 8:14 PM EDT [facility] Creatinine 0.73 0.51 - 1.30 mg/dL 03/12/2025 8:14 PM EDT [facility] Albumin 4.0 3.5 - 5.2 gm/dL 03/12/2025 8:14 PM EDT [facility] Total Protein 7.8 6.4 - 8.3 gm/dL 03/12/2025 8:14 PM EDT [facility] Bili Total 0.4 0.2 - 1.3 mg/dL 03/12/2025 8:14 PM EDT [facility] ALT 21 <=41 U/L 03/12/2025 8:14 PM EDT [facility] AST 15 <=40 U/L 03/12/2025 8:14 PM EDT [facility] Alk Phos 94 36 - 123 U/L 03/12/2025 8:14 PM EDT [facility] eGFR (CKD-EPIcr 2020) 118 >=60 mL/min/1.7 3 m2 03/12/2025 8:14 PM EDT [facility] Comment:Estimated GFR was ca lculated using the CKD-EPIcr (2020) equation refit without race. The equation is recommended by the National Kidney Foundation - [place] [employer] Neph[employer] Task Force. Blood VENOUS BLOOD / Unknown Venipuncture / Unknown 03/12/2025 7:35 PM EDT 03/12/2025 7:41 PM EDT us Umang Gomez TOBACCO SHAKER CHEMISTRY ORDERABLES Fin al Result [facility] [address] [place] [address] * EK EKG 12 LEAD (03/12/2025 5:06 PM EDT) Anatomical Region Laterality Modality Electrocardiogra phy 03/12/2025 5:09 PM EDT Impressions 03/13/2025 10:[address] [facility] Test Date: 2025-03-12 Pat Name: [facility] Department: DEPID Room: Gender: Female Floor Layer Tile: : 2000 Requested By: [facility] Order Number: [id number] Reading MD: Dylon Adan MD Measurements Intervals [place] Rate: 77 P: 42 NE: 158 QRS: 69 QRSD: 91 T: 43 QT: 379 QTc: 430 Interpretive Statements SINUS RHYTHM Electronically Signed On 03-13-2025 10:19:16 EDT by Dylon Adan MD Narrative Procedure Note Dylon Adan MD - 03/13/[address] Test Date: 2025-03-12 Pat Name: [facility] Department: DEPID Room: Gender: Female Floor Layer Tile: : 2000 Requested By: [facility] Order Number: [id number] Reading MD: Dylon Adan MD Measurements Intervals [place] Rate: 77 P: 42 NE: 158 QRS: 69 QRSD: 91 T: 43 QT: 379 QTc: 430 Interpretive Statements SINUS RHYTHM Electronically Signed On 03-13-2025 10:19:16 EDT by Dylon Adan MD Trent Tyler MD IMG ECG ORDERABLES Final Result * MANAGER OF HEALTH CYTOLOGY REQUEST (PAP ONLY) (04/19/2023 10:30 AM EDT) CASE REPORT Gynecologic Cytology Report Case: [id number] Authorizing Provider: Carmel Holder Collected: 04/19/2023 1030 MD [facility] Ordering Location: [facility] Received: 04/19/2023 1030 First Screen: Mildred Roman CT Specimen: LIQUID-BASED PAP - CERVICAL/ENDOCERV ICAL, Cervix, Endocervical 04/25/2023 11:59 AM EDT [facility] PAP FINAL DIAGNOSIS Negative for intraepithelial lesion or malignancy 04/25/2023 11:59 AM EDT [facility] at 1159 EDT MICROSCOPIC DESCRIPTION Microscopic examination is performed and the findings corroborate the diagnosis. 04/25/2023 11:59 AM EDT [facility] PAP SMEAR ADEQUACY Satisfactory for evaluation 04/25/2023 11:59 AM EDT [facility] ENDOCERVICAL T-ZONE Transformation zone present 04/25/2023 11:59 AM EDT [facility] EMBEDDED IMAGES 11:59 AM EDT [facility] PAP DISCLAIMER The Pap Smear is a screening test that aids in the detection of cervical cancer and cancer precursors. Both false positive and false negative results can occur. The test should be used at regular intervals, and positive results should be confirmed before definitive therapy. Processed using the ThinPrep Photograph Retoucher Automated cytology screening device ([employer]). 04/25/2023 11:59 AM EDT [facility] Thin Prep ENDOCERVICAL STRUCTURE / Unknown 04/19/2023 10:30 AM EDT 04/19/2023 10:30 AM EDT us Carmel Holder MD CYTOLOGY ORDERABL ES Final Result [place] [id number] * GC CHLAMYDIA THIN PREP (04/19/2023 10:30 AM EDT) Chlamydia trachomatis Not Detected Not Detected 04/20/2023 1:51 PM EDT [facility], [facility] Neisseria gonorrhoeae Not Detected Not Detected 04/20/2023 1:51 PM EDT [facility], [facility] Thin Prep SPECIMEN FROM UTERINE CERVIX / Unknown 04/19/2023 10:30 AM EDT 04/19/2023 10:30 AM EDT Narrative [facility], [facility] - 04/20/2023 1:51 PM EDT Testing methodology is field rep mediated amplification (TMA) using the Aptima Combo 2 assay from [employer]. A negative result does not completely rule [...] upon request. Carmel Holder MD MICROBIOLOGY - NERND ORDERABLES Final Result [facility] [employer] [address] [place] [address], [address] [place] [phone] from Last 3 Months or Most Recently Relevant to Health Maintenance Insurance ANTHEM PPO ANTHEM PPO ANTHEM PPO ANTHEM PPO * Guarantor: Deborah Tim Account Type Relation to Patient Date of Phone Billing Address [place] Personal Family Self Advance Directives For more information, please contact: [phone] * Full Code (Latest Code Status on File) Date Activated Date Inactivated Comments 10/20/2023 11:46 AM 10/22/2023 7:25 PM Care Teams Farm Contractor Buyer Relationship Specialty Start Date End Date Neeru Samuels MD [address] [place] [address], [place] [address] PCP - General Internal Medicine 07/05/23
== END 2025-06-05 23:59 | disposition home or self-care (01) ==
LOC: RAD 13:48
PROVIDERS: PCP Obstetrics & Gynecology; Visit Provider Obstetrics & Gynecology
DX: O09.292 Supervision of pregnancy with other poor reproductive or obstetric history, second trimester (principal); Z3A.20 20 weeks gestation of pregnancy
CPT/HCPCS: 76811